=== PATIENT | male | born 1955 | race Caucasian/White ===

== ENCOUNTER 2025-01-01 14:48 | Inpatient (IN) | payer BC, SELFPAY ==
[2025-01-01] VITALS (45 sets, daily range): BP systolic 88–150; BP diastolic 56–128; BMI 32.1; BMI 32.6
--- NOTE | 2025-01-01 11:31 | ED.GENMED ---
History of Present Illness
General
Chief Complaint: Chest Pain
Source: patient
Exam Limitations: none
Time Seen by Provider: 01/01/25 11:17
Nursing documentation reviewed up to this point in time: agreed with
History of Present Illness
History of Present Illness:
69 yr old male with pmh of CAD, diabetes patient is a 69-year-old male who presents to the ER for evaluation of chest pain. Patient is a intermittent episodes of chest pain shortness of breath for the past several weeks he reports he gets very
short of breath with needing small exertion he is followed by Dr. Devine who wanted him to get a catheterization however if symptoms worsen he was instructed to come to the ER. He does report that Dr. Shepard was supposed to do a cardiac
catheterization. He was recently started on isosorbide by DR Devine.
Patient is asymptomatic currently. He is on aspirin and to take a dose today.
Phy Exam
General Physical Exam
General Presentation: no apparent distress
General age: appears stated age
General Skin: warm and dry
General Habitus: normal
General Mental: alert
General Hydration: appears well hydrated
Cardiovascular Exam
Cardiovascular Exam: regular rate/rhythm, no murmur and normal peripheral pulses
Pulmonary Exam
Pulmonary Exam: lungs clear and no respiratory distress
Neurological Exam
Neurological Exam: alert and oriented x3
Musculoskeletal Exam
Musculoskeletal Exam: full ROM
Skin Exam
Skin Exam: normal color and warm/dry
Psychiatric Exam
Psychiatric Exam: normal mood/affect
Scores
Heart Score for Chest Pain Patients
STEMI patient?: Not applicable
Course
Orders/Labs/Results
Orders:
Orders
01/01/25 11:06
Electrocardiogram (*1) Urgent
Reason for Study: Chest Pain
EKG- Treatment ONCE
01/01/25 11:36
Complete Blood Count/With Diff Urgent
Comprehensive Metabolic Panel Urgent
Troponin I Urgent
01/01/25 12:33
Nitroglycerin 100 mg/250 ml [Nitroglycerin Premix] 100 mg in 250 ml .ROUTE .STK-MED
Nitroglycerin Sublingual [Nitrostat (Sublingual)] 0.4 mg .ROUTE .STK-MED ONE
01/01/25 12:34
Nitroglycerin Ointment [Nitro-Bid] 1 inch .ROUTE .STK-MED ONE
01/01/25 12:48
0.9% Sodium Chloride 1000 ml [Nss] 1,000 ml IV BOLUS
Aspirin Chewable [Low Strength Aspirin] 243 mg PO NOW STA
Nitroglycerin Sublingual [Nitrostat (Sublingual)] 0.4 mg SL [id number] PRN
01/01/25 13:27
PTT Urgent
01/01/25 13:38
Heparin 4,000 units IV NOW STA
Heparin Protocol- PTT Orders As Directed
PTT per Heparin protocol: -Obtain CBC and baseline PTT - if not already collected.
-Obtain PTT 6 hours from start of infusion. Then, every 6 hours until 2 consecutive
PTT's are therapeutic. Then, PTT Daily.
-With each rate change, obtain PTT every 6 hours until 2 consecutive PTT's are
therapeutic. Then, PTT Daily.
Heparin Protocol- PTT Orders As Directed
PTT per Heparin protocol: -Obtain CBC and baseline PTT - if not already collected.
-Obtain PTT 6 hours from start of infusion. Then, every 6 hours until 2 consecutive
PTT's are therapeutic. Then, PTT Daily.
-With each rate change, obtain PTT every 6 hours until 2 consecutive PTT's are
therapeutic. Then, PTT Daily.
Notify MD As Directed
Notify physician if: PTT is greater than or equal to 200.
Notify MD As Directed
Notify physician if: PTT is greater than or equal to 200.
01/01/25 13:45
Heparin 18261 Units/250 ml 25,000 units in 250 ml IV PER PROTOCOL
Weight to be used for heparin protocol in kilograms (kg):: 101.6
Protocol:: Cardiac Tx/Acute Coronary
PTT Goal Range to be used:: PTT 73 to 111 seconds
Order type:: Initial
INITIAL Infusion Dose (UNITS/KG/hr) & then follow protocol:: 12 units/kg/hr
Infusion Dose in UNITS/hr & then follow protocol (UNITS/hr):: 1,000
INFUSION RATE in mL/hr & then follow protocol (mL/hr):: 10
PTT less than or equal to 64 seconds:: Increase rate by 200 units/hr (+ 2 mL/hr)
PTT 64.1 to 72.9 seconds:: Increase rate by 100 units/hr (+ 1 mL/hr)
PTT 73 to 111 seconds:: Target Range. No change in rate.
PTT 111.1 to 130.9 seconds:: Decrease rate by 100 units/hr (- 1 mL/hr)
PTT 131 to 199.9 seconds:: HOLD for 1 hr. Then decrease rate by 200 units/hr (- 2 mL/hr)
PTT greater than or equal to 200 seconds:: HOLD for 2 hrs & Notify Provider. Then decrease by 200 units/hr (-
2 mL/hr)
Lab follow-up:: Each change, PTT q6h until 2 consecutive are therapeutic. Then PTT
daily.
01/01/25 13:53
Admit/Transfer Patient As Directed
Co-Sign Provider:
Level of Care: Inpatient admission
Assign to:: IVU
Physician / Group: Lexie
Diagnosis: NSTEMI
Reason for Hospitalization: heparin drip, cardiac cath
Expected length of stay greater than two midnights?: Yes
ELOS- Estimated Length of Stay in days: 3
I certify the patient meets the requirements for IP care: Yes
01/01/25 13:54
PRN Pain Medication Management As Directed
May give lesser potent ordered pain med per pt: Yes
preference::
Protocol:: Medication orders for pain may be administered in a
manner that supports deferring to patient preference
when the pt is:
- Requesting an ordered lesser potent pain medication.
Least to most potent pain medications are defined
as: acetaminophen < NSAID < tramadol < opioids
(morphine, oxycodone, hydromorphone).
- Requesting a lesser dose of the same medication IF
ORDERED.
- Requesting a less intrusive route of administration
if both routes are prescribed by the provider (PO <
IV).
01/01/25 13:55
Code Status As Directed
Resuscitation Status: Full Code
01/01/25 16:23
Acetaminophen [Tylenol] 1,000 mg PO Q6HPRN PRN mild pain
Dextrose 50%-Water [Dextrose 50% Syringe] 12.5 grams IV [id number] PRN
Glucagon [GlucaGen] 1 mg IM PRN PRN
01/01/25 16:23
CARDIOLOGY CONSULT Routine
Consulting Provider: Ricardo Sequeira
Was physician already notified: Yes
Activity As Directed
Activity Level: Out of Bed-Early Mobility
With Assistance
Bedside Glucose Monitoring As Directed
Frequency: AC&HS
Additional Instructions:: Change to q6h if pt on TPN, tube feeding or not eating
I&O [Intake/ Output] As Directed
Frequency: q12h
Vital Signs As Directed
Frequency: Per unit guidelines
Weight As Directed
Frequency: Daily
01/01/25 16:30
Insulin Aspart Corrective Low [Novolog Flexpen-Low Resistance] See Protocol SC AC
01/01/25 17:00
EKG [Electrocardiogram (*1)] Routine
Reason for Study: Chest Pain
Troponin I Q6H
01/01/25 23:00
Troponin I Q6H
01/02/25 06:00
Echo 2D MMode Color/Doppler IN AM
Reason for Study: NSTEMI
Basic Metabolic Panel IN AM
Complete Blood Count/No Diff IN AM
Hgba1c [Glycohemoglobin (HgbA1c)] IN AM
Hgba1c [Glycohemoglobin (HgbA1c)] IN AM
Lipid Profile [Cardiovascular Evaluation] IN AM
Lipid Profile [Cardiovascular Evaluation] IN AM
Magnesium IN AM
01/02/25 08:00
Aspirin Low Dose EC [Aspir Low (Enteric Coated)] 81 mg PO DAILY
Dapagliflozin [Farxiga] 10 mg PO DAILY
ISOSORBIDE MONOnitrate ER [Imdur (Extended Release)] 30 mg PO DAILY
Losartan [Cozaar] 100 mg PO DAILY
Pantoprazole [Protonix] 40 mg PO DAILY
Rosuvastatin Calcium [Crestor] 40 mg PO DAILY
Tamsulosin [Flomax] 0.4 mg PO DAILY
01/03/25 06:00
Complete Blood Count/No Diff Q2D
Comment: notify provider: Platelet count < 130,000 or decrease by 50% from baseline
01/05/25 06:00
Complete Blood Count/No Diff Q2D
Comment: notify provider: Platelet count < 130,000 or decrease by 50% from baseline
01/07/25 06:00
Complete Blood Count/No Diff Q2D
Comment: notify provider: Platelet count < 130,000 or decrease by 50% from baseline
01/09/25 06:00
Complete Blood Count/No Diff Q2D
Comment: notify provider: Platelet count < 130,000 or decrease by 50% from baseline
01/11/25 06:00
Complete Blood Count/No Diff Q2D
Comment: notify provider: Platelet count < 130,000 or decrease by 50% from baseline
01/13/25 06:00
Complete Blood Count/No Diff Q2D
Comment: notify provider: Platelet count < 130,000 or decrease by 50% from baseline
01/15/25 06:00
Complete Blood Count/No Diff Q2D
Comment: notify provider: Platelet count < 130,000 or decrease by 50% from baseline
01/17/25 06:00
Complete Blood Count/No Diff Q2D
Comment: notify provider: Platelet count < 130,000 or decrease by 50% from baseline
Abnormal Lab Results
01/01/25
11:36
Abs Immat Gran (auto) 0.1 H 10^3/uL
(0-0.05)
Absolute Neuts (auto) 6.6 H 10^3/uL
(1.4-6.5)
Absolute Monos (auto) 0.8 H 10^3/uL
(0.1-0.6)
Immature Gran % 0.6 H %
(0-0.5)
Glucose 165 H mg/dl
(70-99)
Troponin I 0.124 H* ng/ml
01/01/25 11:36
01/01/25 11:36
Vital Signs
Initial and Last Documented VS:
Initial Vital Signs
Temp Pulse Resp BP Pulse Ox
98.0 F 111 20 100/72 97
01/01/25 11:12 01/01/25 11:12 01/01/25 11:12 01/01/25 11:12 01/01/25 11:12
Last Documented Vital Signs
Temp Pulse Resp BP Pulse Ox
98.5 F 81 14 136/89 97
01/01/25 16:25 01/01/25 16:34 01/01/25 16:25 01/01/25 16:00 01/01/25 16:25
MDM/Problems Addressed
Differential Diagnosis Includes:
Not limited to ACS, CAD CHF
MDM/Problems Addressed:
Pt is a 69-year-old male with past with a history of diabetes CAD followed by Dr. Gramajo outside cardiology group. He has been having exertional chest pain worse over the past several weeks but worse this past week. He does present with chest
pain 6 out of 10 no acute EKG findings are cardiac troponin is positive. He does complain of 6 out of 10 chest pain here he was given additional aspirin as he only took 1 baby aspirin this morning. nitroglycerin ordered.
case discussed with Dr. Sequeira cardiology. Cardiology evaluated at bedside . as per cardiology it is likely that pt will need a catheterization. Patient admitted to the hospital service.
*Pulse Oximetry
SaO2: 97
Oxygen Mode of Delivery: Room air
Patient hypoxic: no
*Critical Care Note
Total Time (30-74mins, 75-104mins- exclusive of procedures): Not Applicable
Patient Management
Discussion with other providers: Venipuncturist (Cardiology, DR Sequeira )
ED Attending Note
-
Portions of this chart may have been created with voice recognition software.� Occasional wrong word or��sound alike� substitutions may have occurred due to the inherent limitations of voice recognition software.
Discharge Plan
Departure
Patient Disposition: Admit
Date of Disposition: 01/01/25
Time of Disposition: 13:20
Admit to: Telemetry
Admit to doctor: hospitalist
Presentation/result/management discussed w/ accepting MD/DO: Hospitalist
Patient with high blood pressure during this ER visit?: No
Condition: Fair
Covid-19: Not Applicable
Discharge Problem:
Chest pain, Elevated troponin
Interventions
Interventions:
*Risk Screen - Suicide Last Done: 01/01/25 16:27
*General Assessment Last Done: 01/01/25 11:12
*Neglect/Abuse Screening Last Done: 01/01/25 12:42
*ED- Fall Risk Assessment Last Done: 01/01/25 16:27
*ED COVID-19 Vaccine History Last Done: 01/01/25 12:42
*Nursing Disposition Last Done: 01/01/25 16:27
ED- Cardiac Assessment Last Done: 01/01/25 11:42
Discharge Date and Time
Discharge Date/Time: 01/01/25 16:28
[2025-01-01 11:48] LABS: Hematocrit 41.2 % (39.0-52.0); Hemoglobin 14.1 g/dL (13.0-18.0); Mean Corp Hgb Conc. 34.2 g/dL (33.0-37.0); Mean Corpuscular Volume 85.5 fL (80.0-94.0); Nucleated Red Blood Cells % 0 % (-); Platelet Count 271 10^3/uL (130-400); Red Cell Dist. Width 12.6 % (11.5-14.5)
[2025-01-01 12:12] LABS: ALT (SGPT) 21 U/L (0-50); AST (SGOT) 22 U/L (17-59); Albumin 4.7 g/dl (3.5-5.0); Alkaline Phosphatase 51 U/L (38-126); Blood Urea Nitrogen 20 mg/dl (9-20); Calcium 9.6 mg/dl (8.4-10.2); Carbon Dioxide 23 mmol/L (22-30); Chloride 104 mmol/L (98-107); Glucose 165 mg/dl (70-99); Potassium 4.1 mmol/L (3.5-5.1); Sodium 136 mmol/L (135-145); Total Protein 6.7 g/dl (6.3-8.2); eGFR > 60.00
[2025-01-01 12:26] LABS: Troponin I 0.124 ng/ml
[2025-01-01] MEDS: NITROSTAT (SUBLINGUAL) 0.4 MG SL ×5 (12:52→20:10)
[2025-01-01] MEDS: NSS 1000 IV (12:56)
[2025-01-01] MEDS: LOW STRENGTH ASPIRIN 243 MG PO (12:58)
--- NOTE | 2025-01-01 13:27 | CON.CAR ---
Addendum entered and electronically signed by Ricardo Sequeira MD 01/01/25 14:51:
I saw and evaluated the patient, and I provided the substantive portion of the medical decision making.
I reviewed and agree with the note by LESLEY Roldan and it accurately reflects our care.
I personally performed the medical decision making of the this encounter and my assessment and plan is below:
Data:
EKG 01/01/2025 NSR 97 bpm normal.
Labs 01/01/2025: WBC 10, Hgb 14.1, PLT 271 PTT 27, glucose 165, sodium 136, creatinine 0.7, initial troponin 0.124
Cath 07/2008 sequential 20%, 30%, and 30% mid LAD lesions. Major diagonal 30 to 40% ostial stenosis. Luminal irregularities in the left circumflex, codominant right coronary artery.
Problems:
Progressive chest pain, initially exertional, subsequently at rest. Consistent with ACS. Abnormal troponin. High risk.
Mixed hyperlipidemia, on statin therapy
HTN: On medical therapy. Stable.
Type 2 diabetes mellitus, on therapy., Stable
Plan:
Aspirin, beta-blockers a bit low after nitroglycerin so we will hold on beta-mony, IV heparin, trend troponins, echocardiogram. Because he is not chest pain-free in the ER we will progress to coronary angiography today.
Original Note:
Consultation
Consultation Request
Date/Time Consultation Requested: 01/01/25 1248
Date/Time Consultation Performed: 01/01/25 1300
Requesting Provider: Hilary ZAVALA
Performing Provider: Jessica SUTTON for Dr. Sequeira
Reason for Consultation: NSTEMI
Medical History
-
Chief Complaint: chest discomfort and shortness of breath
History of Present Illness:
69 y/o male with HTN, HLD, DM, and previous history of non-obstructive CAD who is here for evaluation of 1.5 weeks of chest discomfort (midsternal pressure- feels like someone stepping on chest) and radiates to back. Worse with exertion, but also
noted with rest. Also noted GAR and LH with exertion. He saw his fruit distributor (Dr. Devine) yesterday and he recommended cath, but to come to ER if patient felt worse. He started imdur. Patient felt worse today so came in. CP started at 6 AM and
has been present ever since. It is better after nitro, but still a mild pressure. No distress. EKG stable. Troponin 0.124.
Past Medical History
Past Medical History: CAD, HTN, Hypercholesterolemia and NIDDM
Social History
Tobacco: Non-Smoker
Family History
Family History: Early CAD (dad PR age 51)
Allergies / Home Medications
Allergy/AdvReac Type Severity Reaction Status Date / Time
No Known Allergies Allergy Unverified 01/01/25 11:15
�Medication �Instructions �Recorded �Confirmed �Type
acetaminophen 500 mg tablet 1,000 mg PO Q6H PRN mild pain 01/01/25 01/01/25 History
(Tylenol Extra Strength)
aspirin 81 mg tablet 81 mg PO DAILY 01/01/25 01/01/25 History
empagliflozin 10 mg tablet 10 mg PO DAILY 01/01/25 01/01/25 History
(Jardiance)
isosorbide mononitrate 30 mg 30 mg PO DAILY 01/01/25 01/01/25 History
tablet,extended release 24 hr
losartan 100 mg tablet 100 mg PO DAILY 01/01/25 01/01/25 History
metformin 500 mg tablet 500 mg PO DAILY 01/01/25 01/01/25 History
omeprazole 40 mg capsule,delayed 40 mg PO DAILY 01/01/25 01/01/25 History
release
rosuvastatin 40 mg tablet 40 mg PO DAILY 01/01/25 01/01/25 History
tamsulosin 0.4 mg capsule 0.4 mg PO DAILY 01/01/25 01/01/25 History
Review of Systems
-
History Source: Patient
All other systems: Negative unless noted
Respiratory: Trouble Breathing
Cardiac: Chest Pain
Musculoskeletal: Other (back pain)
Neurological: Dizzy (LH with exertion)
Physical Exam
Vital Signs
Temp Pulse Resp BP Pulse Ox
98.0 F 111 20 107/83 97
01/01/25 11:12 01/01/25 11:12 01/01/25 11:12 01/01/25 13:23 01/01/25 11:32
Lab Results
01/01/25 11:36
01/01/25 11:36
Troponin I 0.124 ng/ml H* 01/01/25 11:36
Physical Exam
General: Well Developed, Well Nourished and No Apparent Distress
HEENT: Normocephalic and Anicteric
Respiratory: Clear and Non Labored Respirations
Cardiac: Regular Rhythm
Musculoskeletal: No Edema
Skin: Warm and Dry
Neuro: AO x 3
Psych: Calm
Impression / Plan
-
NSTEMI:
-CP improved, but not resolved- give another nitro now- discussed with nursing
-this diagnosis is threat to life
-needs cardiac cath- will arrange
-start heparin drip, which requires intensive monitoring
-full dose ASA received today
-trend trops and EKG, obtain echo
-lipids hgbA1C
HTN:
-continue ARB and monitor
HLD:
-continue statin
-check lipids
DM2:
-check A1C
-hold metformin
-management per primary team
Data Reviewed
-
EKG: Tracing Personally Visualized and interpreted (NSR)
Radiology: Report Reviewed by me (CXR: Normal PA and lateral views of the chest.)
Medical Tests (Nuc Med, Echo etc): Other (echo ordered)
Labs: Labs Reviewed by me
--- NOTE | 2025-01-01 13:27 | HPS.HSE ---
Addendum entered and electronically signed by Alcira Owen MD 01/01/25 14:30:
This is an addendum to H&P written by Elayne Finley on 01/01/2025. �Patient seen and examined independently with PA.
69-year-old male past medical history of nonobstructive CAD, hypertension, hyperlipidemia, diabetes, BPH, presenting with intermittent chest pain and shortness of breath for past several weeks mainly with exertion. �Worsening pain without
improvement nitro today.
Vital signs show mild tachycardia.
EKG shows normal sinus rhythm, ST depressions in V3-V6. �Troponin of 0.124.
Patient with NSTEMI. �Check A1c and lipid panel. �Trend troponins. �Aspirin, heparin drip, n.p.o. for catheterization today.
Original Note:
Family Physician
-
Family Physician: Jian Mantilla
Chief Complaint
-
Chest Pain
History of Present Illness
Patient is a 69 y/o male past medical history of non-obstructive coronary artery disease, diabetes mellitus, hypertension, hyperlipemia and BPH who presents with chest pain. Patient reports over the past few weeks he has been experiencing exertional
chest pain and shortness of breath. He reports symptoms are now occurring with only minimal exertion. Pain was worse this morning prompting him to come to the emergency department for evaluation. He did take a first nitro at home without much
change. While in the ED he has received two additional doses of nitro and is not reporting some improvement.
Medical History
Past Medical History
Past Medical History: Reports Other
Additional Past Medical History:
Coronary Artery Disease
Diabetes Mellitus, Type II
Essential Hypertension
Hyperlipidemia
BPH
GERD
Past Surgical History: Reports Other
Additional Past Surgical History:
Back Surgery
Bilateral Shoulder Surgery
Social History
Tobacco: Non-smoker
Alcohol: None
Personal:
Living: With Family
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
Family History
Family History: Other (Father: CAD with VT at 51)
Allergies / Home Medications
Allergies reflects when Allergies were last updated in [employer].
Home Medications with original date entered in [employer]
Allergy/Medication List:
Allergies
Allergy/AdvReac Type Severity Reaction Status Date / Time
No Known Allergies Allergy Unverified 01/01/25 11:15
Home Medications
acetaminophen 500 mg tablet (Tylenol Extra Strength) 1,000 mg PO Q6H PRN mild pain 01/01/25
aspirin 81 mg tablet 81 mg PO DAILY 01/01/25
empagliflozin 10 mg tablet (Jardiance) 10 mg PO DAILY 01/01/25
isosorbide mononitrate 30 mg tablet,extended release 24 hr 30 mg PO DAILY 01/01/25
losartan 100 mg tablet 100 mg PO DAILY 01/01/25
metformin 500 mg tablet 500 mg PO DAILY 01/01/25
omeprazole 40 mg capsule,delayed release 40 mg PO DAILY 01/01/25
rosuvastatin 40 mg tablet 40 mg PO DAILY 01/01/25
tamsulosin 0.4 mg capsule 0.4 mg PO DAILY 01/01/25
Review of Systems
-
A 12 point ROS was completed and negative except as noted: Yes
Constitutional: Denies Fever or Chills
Respiratory: Denies Cough or Trouble Breathing
Cardiac: Reports See HPI
Abdomen/GI: Denies Abdominal Pain, Nausea or Vomiting
Musculoskeletal: Denies Edema
Physical Exam
Vital Signs
Vital Signs
Temp Pulse Resp BP Pulse Ox
98.0 F 111 20 107/83 97
01/01/25 11:12 01/01/25 11:12 01/01/25 11:12 01/01/25 13:23 01/01/25 11:32
Physical Exam
General: Comfortable and Conversant
HEENT: Anicteric and Moist mucous membranes
Respiratory: Clear and Non Labored Respirations
Cardiac: S1/S2 and Regular Rhythm
GI: Soft and Non Tender
Rectal: Deferred by Provider
Musculoskeletal: No Clubbing, No Cyanosis and No Edema
Skin: Warm and Dry
Neuro: Awake, Alert, Oriented and Nonfocal/grossly intact
Psych: Calm
Laboratory Results
-
01/01/25 11:36
01/01/25 11:36
Laboratory Results
Total Bilirubin 0.6 mg/dl (0.2-1.3) 01/01/25 11:36
AST 22 U/L (17-59) 01/01/25 11:36
ALT 21 U/L (0-50) 01/01/25 11:36
Alkaline Phosphatase 51 U/L (38-126) 01/01/25 11:36
Troponin I 0.124 ng/ml H* 01/01/25 11:36
Data Reviewed
-
Medical Tests (Nuc Med, Echo, EKG etc): Report Reviewed by me
Lab Data: Labs Reviewed by me
Impression/Plan
-
Non-ST Elevation VT
-Consult Cardiology
-Plan for cardiac catheterization this afternoon
-Continue to trend troponin
-Continue heparin drip
-Continue aspirin
-Continue isosorbide mononitrate
-Check HgbA1c and Lipid Panel
Diabetes Mellitus, Type II
-Continue Jardiance
-Hold metformin post cardiac cath
-Monitor sugars and continue coverage insulin
Essential Hypertension
-Continue losartan
Hyperlipidemia
-continue rosuvastatin
BPH
-Continue tamsulosin
DVT proph: Heparin drip
Code Status: Full Code
[2025-01-01 13:54] LABS: APTT 27.3 Sec (23.4-35.0)
[2025-01-01] MEDS: HEPARIN 4000 UNITS IV (13:55)
[2025-01-01] MEDS: HEPARIN 25000 UNITS/250 ML IV (13:56)
--- NOTE | 2025-01-01 16:47 | PTCARENOTE ---
Rec'd report from [facility] in the ED; Rec'd pt AAOx3 w/no c/o CP or SOB at this time. Pt w/VSS w/HR in the 70's-80's & SR on telemetry monitoring. Pt w/IV heparin infusing through a patent line as ordered. Plan of care discussed briefly w/pt just before
nursery laborer RNs came to take pt to the nursery laborer. Plan of care ongoing.
--- NOTE | 2025-01-01 17:36 | ITS.CL.CATH ---
Lamp Replacer - Catheterization
Cardiac Catheterization
Procedure Report:
CARDIAC CATHETERIZATION REPORT
Date of Procedure: 01/01/2025
Referring: Ricardo Sequeira M.D.
INDICATION: Acute coronary syndrome.
PROCEDURE:
1. Left heart catheterization.
2. Coronary angiography.
3. Successful IFR of the mid LAD.
A total of 28 minutes of procedural/moderate sedation was utilized. An independent biomedical photographer was present to assist with and help manage the patient's level of consciousness and physiologic status.
ACCESS:
1. 6 Ukrainian right radial artery using a modified Seldinger technique delete delete the.
CATHETERS:
1. 5 Ukrainian JR4.
2. 5 Ukrainian JL 3.5.
3. 6 Ukrainian EBU 3.5 guiding catheter.
HEMODYNAMIC DATA
Weight (kg): 101.2
AO (s/d/x, mmHg): 108/77/89
LV (s/x mmHg): 118/12
AV gradient (x, mmHg): 10.57
LEFT VENTRICULOGRAPHY: Not performed.
CORONARY ANGIOGRAPHY
Dominance: Right.
Left Main: Normal size, trifurcating vessel. There is no coronary artery disease.
LAD: Normal size vessel giving rise to 2 diagonals. The first diagonal is a relatively small vessel. The second diagonal is a large vessel supplying a significant portion of the mid and distal anterolateral wall. There is a hazy, 40-50% lesion
in the mid LAD spanning the origin of D2. There is a 70% lesion in the mid to distal LAD. There is a 90% lesion in the ostium of the large second diagonal.
Ramus: Large size vessel supplying the majority of the lateral wall. There is no coronary artery disease.
Circumflex: Normal size, nondominant vessel giving rise to 1 medium sized obtuse marginal and a small arcade of posterolateral branches. There are luminal irregularities in the distal circumflex/LPL's.
RCA: Normal size, dominant vessel. There is a 90%, true ostial lesion in the RCA. There are several 40% lesions in the distal RCA as it becomes the RPDA.
INTERVENTION(S)
1. Successful IFR of the 70% mid/distal LAD lesion, demonstrating occlusive disease (IFR = 0.87).
Narrative:
The decision was made to perform physiologic testing. The diagnostic catheter was removed over a wire and exchanged for a(n) EBU 3.5 guiding catheter. The guiding catheter was advanced into the ascending aorta and seated in the left main coronary
artery. Additional heparin was given to obtain an ACT greater than 250 seconds. An iFR wire was zeroed outside of the body, then inserted into the guiding sheath. The wire was advanced and the transducer was normalized just outside of the guiding
catheter tip. The wire was advanced into the mid/distal LAD, beyond the 70% lesion. Three iFR measurements were taken. The lesion was determined to be occlusive (0.87).
Closure Device: Vascular band.
Radiation (mGy): 718
DAP (cm2.Gy): 33.9
Fluoroscopy time (minutes): 8.3
CONCLUSIONS
1. Right dominant circulation with a 90% true ostial RCA lesion followed by several 40% lesions in the distal RCA as it becomes the RPDA, hazy, 40-50% lesion in the mid LAD spanning the origin of D2, a 90% lesion in the ostium of the large second
diagonal and an occlusive 70% lesion in the mid/distal LAD (IFR = 0.87).
2. Normal filling pressures (LVEDP = 12 mmHg at 101.2 kg).
3. Probably mild aortic valve stenosis (mean aortic valve gradient 10.57 mmHg).
RECOMMENDATIONS:
1. Expectant management after cardiac catheterization via right radial approach.
2. Limited weight bearing on the right for one week.
3. Consultation with CT surgery regarding optimal revascularization strategy.
4. Resume heparin drip.
5. OMT/GDMT as hemodynamics will tolerate.
6. Aggressive secondary prevention with high-dose, high potency statin. Goal LDL <55.
7. Echocardiogram ordered and pending.
Copy to: Jeni Brody PA-C, Jasen Devine D.O., Jian Mantilla M.D.
Samir Shepard DO, FACC, FACP
[2025-01-01 17:37] LABS: ACT-LR - POC 368 Seconds (116-155)
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
[2025-01-01 18:10] LABS: Glucose - Point of Care 111 mg/dl (70-99)
[2025-01-01 18:21] LABS: Troponin I 0.115 ng/ml
[2025-01-01] MEDS: TYLENOL 1000 MG PO (20:25)
[2025-01-01] MEDS: NITROGLYCERIN PREMIX 250 IV (20:40)
--- NOTE | 2025-01-01 20:52 | W.PN.UPDATE ---
Update Note
Progress Note Update
-came in @ 8:10 pm to eval pt for 7/10 CP. BP 126/73, pOx 95% RA, nsr 73 bpm. No acute ECG changes. Pt was given 2 sl Nitros, started on 2L O2 and is currently pain free. BP ok 116/73 after getting Nitros. Started on iv Nitro. iv Heparin will be
re-started tonight after the cath. Tylenol for headache post Nitros. Pt is undergoing eval for CABG
-discussed with Dr. Bella
-will continue to monitor.
[2025-01-01] MEDS: MELATONIN 5 MG PO (21:01)
[2025-01-01 22:25] LABS: Glucose - Point of Care 117 mg/dl (70-99)
--- NOTE | 2025-01-01 23:22 | PTCARENOTE ---
Patient received at change of shift resting in the bed. Right radial TR band intact, pox 94%, radial pulse palpable. The patient at change of shift denied chest pain. Upon entering the room to complete site and pulse checks at approximately 1955 the
patient reported chest pain. Rated the chest pain as a 7 out of 10, described as pressure across the right and left side of his chest. Denies radiation. Denied N/V. The patient reported that the chest pain had started 45 minutes prior reporting it.
SL nitro x2 was given. An ECG was completed. CT surgery LARRY Dumas was notified and came to the bedside to evaluate the patient. 2L NC was applied. Oxygen saturation 96-97%. Sinus rhythm on telemetry. Nitroglycerin gtt was initiated as ordered.
The patient reported his pain resolved with SL Nitro x2 and initiation of the nitro gtt. PRN acetaminophen was given for a headache following nitro administration, see JUL. TR band off at 2100, gauze and tegaderm applied. Radial pulse palpable.
Heparin gtt resumed at 2230 per order. First type and screen drawn and sent. Plan on care discussed. Call johns within reach. Care ongoing.
[2025-01-01 23:32] LABS: Troponin I 0.093 ng/ml
[2025-01-02] VITALS (19 sets, daily range): BP systolic 101–135; BP diastolic 61–96; BMI 32.3
[2025-01-02] MEDS: TYLENOL 1000 MG PO ×3 (03:41→17:04)
[2025-01-02 04:08] LABS: Hematocrit 40.0 % (39.0-52.0); Hemoglobin 13.9 g/dL (13.0-18.0); Mean Corp Hgb Conc. 34.8 g/dL (33.0-37.0); Mean Corpuscular Volume 85.3 fL (80.0-94.0); Platelet Count 232 10^3/uL (130-400); Red Cell Dist. Width 12.5 % (11.5-14.5)
[2025-01-02 04:15] LABS: APTT 36.5 Sec (23.4-35.0)
[2025-01-02 04:57] LABS: Blood Urea Nitrogen 17 mg/dl (9-20); Calcium 9.4 mg/dl (8.4-10.2); Carbon Dioxide 25 mmol/L (22-30); Chloride 106 mmol/L (98-107); Estimated Creatinine Clearance > 125 ml/min; Glucose 119 mg/dl (70-99); HDL Cholesterol 49 mg/dl; LDL Cholesterol, Calculated 75 mg/dl; Magnesium 1.5 mg/dl (1.6-2.3); Potassium 4.1 mmol/L (3.5-5.1); Sodium 138 mmol/L (135-145); Very Low Density Lipoprotein 30 mg/dl (0-30); eGFR > 60.00
[2025-01-02 07:23] LABS: Glucose - Point of Care 122 mg/dl (70-99)
--- NOTE | 2025-01-02 07:31 | W.PN.CD ---
Today's Communication / Plan
-
Magnesium IV + PO.
F/U CTS consult.
Pain control with nitro gtt.
Add ezetimibe 10 mg daily.
Echocardiogram pending.
Impression / Plan
-
Impression/Plan: 69 y/o male with HTN, HLD, NIDDM and strong family history admitted with NSTEMI.
#NSTEMI:
-Acute, threat to life.
-Cardiac catheterization revealed 2V CAD (culprit ostial RCA, iFR+ mLAD and 90% ostial large D2).
-Consultation with CTS regarding revascularization options.
-Pain control with nitro gtt.
-Echocardiogram pending.
-Replace magnesium.
#HTN:
-Chronic, stable.
-BP control with nitro gtt for the time being.
#HLD:
-Chronic, stable.
-Total cholesterol = 154, LDL = 75, HDL = 49, Triglycerides = 153.
-Continue rosuvastatin 40 mg daily.
-Add ezetimibe 10 mg daily.
-Goal LDL < 55, triglycerides < 150.
#DM2:
-Chronic, stable.
-HbA1c pending.
-Hold metformin.
Subjective/Interval History:
Cath yesterday shows multivessel CAD.
CT surgery consulted.
Chest pain overnight controlled with nitro gtt.
Mg low at 1.5 this AM.
DATA:
Cardiac Catheterization, 01/01/2025:
CONCLUSIONS
1. Right dominant circulation with a 90% true ostial RCA lesion followed by several 40% lesions in the distal RCA as it becomes the RPDA, hazy, 40-50% lesion in the mid LAD spanning the origin of D2, a 90% lesion in the ostium of the large second
diagonal and an occlusive 70% lesion in the mid/distal LAD (IFR = 0.87).
2. Normal filling pressures (LVEDP = 12 mmHg at 101.2 kg).
3. Probably mild aortic valve stenosis (mean aortic valve gradient 10.57 mmHg).
Physical Exam
Vital Signs/Labs
Vital Signs
Temp Pulse Resp BP Pulse Ox
36.6 C 67 18 131/83 94
01/02/25 03:40 01/02/25 06:38 01/02/25 03:40 01/02/25 06:38 01/02/25 03:40
12/31/24 01/01/25 01/02/25
11:59 11:59 11:59
Actual Weight 101.6 kg 102.1 kg
01/02/25 03:52
01/02/25 03:52
APTT 36.5 Sec (23.4-35.0) H 01/02/25 03:52
Magnesium 1.5 mg/dl (1.6-2.3) L 01/02/25 03:52
Triglycerides 153 mg/dl (10-149) H 01/02/25 03:52
LDL Cholesterol, Calc 75 mg/dl 01/02/25 03:52
VLDL Cholesterol, Calc 30 mg/dl (0-30) 01/02/25 03:52
HDL Cholesterol 49 mg/dl 01/02/25 03:52
LAB Results
01/01/25 01/01/25 01/01/25
11:36 17:34 22:46
Troponin I 0.124 H* 0.115 H* 0.093 H*
Physical Exam
Constitutional: No acute distress and Comfortable
EENT: Anicteric and Moist mucous membranes
Cardiovascular: Rhythm & rate is regular, Pedal edema is absent, JVD pressure is normal, S1S2 is normal and Murmur/rub/gallop absent
Respiratory: Respiratory effort normal, Lungs clear to auscul., Wheeze Absent, Crackles Absent and Rhonchi Absent
GI: Soft, Distention absent, Flat, Non tender and Normal bowel sounds
Neuro/Psych: AO x 3
Other: Cath Site (Right radial access site is C/D/I.)
Data Reviewed
-
Date of Service: January 02, 2025
Medical Decision Making: Reviewed Test Results, Independent Historian Assessment, Test Interpretation and Review of Case with other Provider
EKG: Tracing Personally Visualized and interpreted and Report Reviewed by me
Echo: Ordered by me
X-Ray/CT/US/MRI/NUC/PET: Image Personally Visualized and interpreted and Report Reviewed by me
Medical Tests (PFT, Pathology etc): Image Personally Visualized and interpreted, Report Reviewed by me, Discussed with Patient and Discussed with Family
Labs: Labs Reviewed by me
[2025-01-02] MEDS: FLOMAX 0.4 MG PO (08:08)
[2025-01-02] MEDS: CRESTOR 40 MG PO (08:08)
[2025-01-02] MEDS: MAGNESIUM SULFATE 100 IV (08:08)
[2025-01-02] MEDS: IMDUR (EXTENDED RELEASE) 30 MG PO (08:08)
[2025-01-02] MEDS: PROTONIX 40 MG PO (08:09)
[2025-01-02] MEDS: MAGNESIUM OXIDE 400 MG PO ×2 (08:09→20:08)
[2025-01-02] MEDS: ASPIR LOW (ENTERIC COATED) 81 MG PO (08:09)
[2025-01-02 09:59] LABS: Glycohemoglobin (HgbA1c) 6.8 % (4.0-5.6)
--- NOTE | 2025-01-02 10:03 | CARDSERVLU ---
Echocardiogram with Lumason completed after protocol screening completed. Allergies verified.
Patent IV site: _Right arm accessory cephalic 20 G PC____
IV site flushed with 0.9% NaCl pre and post administration.
Diluted bolus method utilized to enhance visualization of ventricular palomino.
Total volume given: _2___ mL
Patient tolerated all procedures well without complications.
--- NOTE | 2025-01-02 10:12 | W.PN.UPDATE ---
Addendum entered and electronically signed by Jimenez Cohen MD 01/02/25 12:12:
CARDIAC SURGERY ATTENDING:
It was my pleasure to meet with Mr. Charlie Rasmussen. He is a very pleasant 69-year-old gentleman who presented with escalating anginal symptoms and ACS with NSTEMI. Cardiac catheterization was completed and demonstrated multivessel CAD affecting
his LAD/D2 and ostial RCA. I reviewed his cardiac catheterization images and discussed his case in multidisciplinary fashion with my interventional cardiology colleagues. Despite having nonproximal LAD disease, given the technical challenges of
PCI/stenting, I believe surgical revascularization is ideal strategy for this patient. I recommended DUSTY to LAD and bypasses to his major diagonal and RCA. His preoperative workup is being expediently completed, and I plan to proceed to the OR
tomorrow 01/03/2025.
I had a long conversation at bedside with Mr. Rasmussen. I reviewed his coronary pathology, discussed the proposed operative interventions, reviewed the periprocedural risks (including, but not limited to, , stroke, IA, arrhythmia, PNA, BETZAIDA/F,
bleeding, and infection), discussed expected in-hospital postprocedural course, and reviewed expected outpatient recovery. All questions were answered to the best of my abilities. The patient is agreeable to proceed.
Thank you for the opportunity participate in the care of this kind gentleman.
Jimenez Cohen MD
[phone]
Original Note:
Update Note
Progress Note Update
STS RISK SCORE
Procedure Type:�Isolated CABG
Perioperative Outcome Estimate %
Operative Mortality 0.591%
Morbidity & Mortality 3.46%
Stroke 0.623%
Renal Failure 0.422%
Reoperation 1.31%
Prolonged Ventilation 1.71%
Deep Sternal Wound Infection 0.162%
Long Hospital Stay (>14 days) 1.72%
Short Hospital Stay (<6 days)* 68.3%
Clinical Summary
Planned Surgery: Isolated CABG, Urgent, First cardiovascular surgery
Demographics: 69 year old, male, 103.1kg, 178cm, BMI: 32.5 kg/m�
Lab Values: Creatinine: 0.6 mg/dL, Hematocrit: 40%, WBC Count: 9.2 10�/�L, Platelet Count: 601518 cells/�L
PreOp Medications: Oral diabetes control
Substance Abuse: Never smoker
Risk Factors / Comorbidities: Diabetes Mellitus , Hypertension, Family Hx of CAD
Cardiac Status: NYHA Class II, Ejection Fraction = 55%
Coronary Artery Disease: 2 vessels diseased, Non-ST Elevation IA, IA: 1 to 7 Days
Valve Disease: Trivial/Trace AR, Trivial/Trace MR, Trivial/Trace TR
--- NOTE | 2025-01-02 11:00 | PTCARENOTE ---
Mag 1.5. made aware and orders placed. Mag gtt ordered and administered.
[2025-01-02] MEDS: ZETIA 10 MG PO (11:13)
[2025-01-02 12:08] LABS: Glucose - Point of Care 100 mg/dl (70-99)
[2025-01-02 12:09] LABS: INR 0.94; PT 13.1 Sec (11.4-14.6)
[2025-01-02 12:10] LABS: APTT 39.7 Sec (23.4-35.0)
--- NOTE | 2025-01-02 12:29 | W.PN.HOSP.TC ---
Today's Communication/Plan
-
ACS protocol. CTS surgery eval
Assessment / Plan
Assessment / Plan
Physical exam:
General: Well Developed, Well Nourished and No Apparent Distress
HEENT: Normocephalic, Atraumatic and Moist Mucous Membranes
Respiratory: Clear to Auscultation; Negative Wheezes, Rales or Rhonchi
Cardiac: Regular Rhythm and S1/S2
GI: Soft, Nontender and Nondistended
Musculoskeletal: No Clubbing, No Cyanosis and No Edema
Neuro: Awake, Alert and Oriented
Psych: Calm
Echo:
1. Left ventricular ejection fraction is normal with an ejection fraction of 59 % by Hickman's biplane method of discs.
2. It appears the basal inferior wall is akinetic and the basal inferolateral wall is hypokinetic.
3. Mild aortic valve stenosis.
4. No prior study available for comparison.
A/P:
Non-ST Elevation MD
-Consult Cardiology
-S/p cardiac cath yesterday revealed two-vessel CAD
- CT surgery consulted
-Continue heparin drip. Status post echocardiogram results as above
-Continue aspirin and statin and beta-mony
-Hold isosorbide mononitrate
-Check HgbA1c 6.8 and Lipid Panel LDL 75
- Cont Nitroglycerin drip
Hypomagnesemia
- Replete and trend
Diabetes Mellitus, Type II
-Hold Farxiga
-Hold metformin post cardiac cath
-Monitor sugars and continue coverage insulin
Essential Hypertension
- Hold losartan
- Continue metoprolol
Hyperlipidemia
-continue rosuvastatin
BPH
-Continue tamsulosin
DVT proph: Heparin drip
Code Status: Full Code
Total time spent on today's encounter was 50 minutes which included time spent in counseling the patient/family regarding diagnosis and treatment plan as listed above, goals of care, and symptom management. Case was discussed with nursing staff,
specialists, and care coordinators/case management. All labs and imaging personally reviewed by me. Remainder the time spent in detailed review of previous records, lab data, imaging, and other medical provider documentation.
Anticipated Discharge: > 48 hours
Subjective/Interval History
-
Date of Service: January 02, 2025
Patient denies chest pain or shortness of breath.
Objective Data
-
Labs:
Laboratory Results
01/02/25 01/02/25 01/02/25
03:52 11:34 18:00
WBC 9.2
Hgb 13.9
Hct 40.0
Plt Count 232
PT 13.1
INR 0.94
APTT 36.5 H 39.7 H Pending
Sodium 138
Potassium 4.1
Chloride 106
Carbon Dioxide 25
BUN 17
Creatinine 0.6 L
Glucose 119 H
Calcium 9.4
Vital Signs:
Vital Signs
Temp Pulse Resp BP Pulse Ox
99.5 F 76 18 127/96 96
01/02/25 11:35 01/02/25 11:35 01/02/25 11:35 01/02/25 11:35 01/02/25 11:35
I&O
01/01/25 01/02/25 01/03/25
06:59 06:59 06:59
Intake Total 90.8 / 90.8 300 / 300
Output Total 1860 / 1860 200 / 200
Balance -1769.2 / -1769.2 100 / 100
--- NOTE | 2025-01-02 12:52 | CM ---
Reviewed chart. Met with and Mrs. Rasmussen to review discharge plans. He states prior to admission he resides with his spouse and children in a one story home without any steps to enter. He states prior to admission he was independent with
ambulation and adls. He states he does not have any DME in the home. He states he has a prescription plan and uses [facility]. He states his family will be in and out to assist in his care in needed. Medical work-up in progress. The discharge
plan is to return home with his spouse and children with a home visit by the Transitional Care Nurse when medically stable.
We briefly reviewed the shower instructions. We also reviewed the restrictions including sternal precautions and driving restrictions. Gave him the Cardiothoracic Surgery Educational Booklet. We discussed a home visit by the Transitional Care
Nurse. He is agreeable to a home visit. The plan is for CABG on Monday01/03/25.
--- NOTE | 2025-01-02 14:39 | PTCARENOTE ---
Report given to Joselin BELL RN. Pt transferred to RM [id number].
--- NOTE | 2025-01-02 15:00 | PTCARENOTE ---
Patient received from IVU in anticipation of CVOR in am. NSR via cm, SaO2 @ 94% on RA. R wrist catheterization site stable, no ecchymosis or hematoma noted. Heparin and NTG infusing, infusion rates and titrations noted on work list interventions.
Patient updated to plan of care for the remainder of the day, in agreement. See work list for full assessment and interventions performed.
--- NOTE | 2025-01-02 16:03 | PTCARENOTE ---
VS obtained, assessment stable. Patient resting comfortably, ordering dinner.
[2025-01-02 16:43] LABS: Glucose - Point of Care 97 mg/dl (70-99)
[2025-01-02 17:54] LABS: Urine Character Clear (Clear)
[2025-01-02] MEDS: HEPARIN 25000 UNITS/250 ML IV (17:56)
[2025-01-02 18:15] LABS: APTT 47.7 Sec (23.4-35.0)
[2025-01-02 18:20] LABS: Urine Red Blood Cell 0-2 /HPF (0-2); Urine White Cell 0-2 /HPF (0-5)
--- NOTE | 2025-01-02 19:44 | PTCARENOTE ---
Assumed care of patient at 1900. Patient alert and oriented, Follows commands, oob IN CHAIR, VALERIA RENTERIAR denies pain at this time on Nitro @20, hEPARIN @1600, RA lungs clear, BS present, Void without issue. explain paln of care and prep of surgery,
assessment completed. See worklist for details.
[2025-01-02] MEDS: XANAX 0.5 MG PO (21:50)
[2025-01-02 21:54] LABS: Glucose - Point of Care 119 mg/dl (70-99)
--- NOTE | 2025-01-02 22:34 | PTCARENOTE ---
patient clipped and shaved, CHG bath and CHG wipe bath completed. Linens and gown changed. Patietn vital signs stable. remains on nitro and heparin gtts.
[2025-01-03] VITALS (17 sets, daily range): BP systolic 94–146; BP diastolic 68–91; PULSE 70; BMI 31.0
[2025-01-03 00:49] LABS: APTT 70.4 Sec (23.4-35.0)
[2025-01-03] MEDS: PROTONIX 40 MG PO (05:02)
[2025-01-03] MEDS: MAGNESIUM OXIDE 400 MG PO (05:02)
[2025-01-03] MEDS: LOPRESSOR 25 MG PO (05:02)
[2025-01-03 05:19] LABS: Hematocrit 40.6 % (39.0-52.0); Hemoglobin 13.9 g/dL (13.0-18.0); Mean Corp Hgb Conc. 34.2 g/dL (33.0-37.0); Mean Corpuscular Volume 85.3 fL (80.0-94.0); Platelet Count 241 10^3/uL (130-400); Red Cell Dist. Width 12.4 % (11.5-14.5)
--- NOTE | 2025-01-03 05:29 | PTCARENOTE ---
Patient had second CHG bath,linens changed , oral medication given with a sip of water, Vitals sign documented, LBP and RBP done, ANcef ready to send to CVOR with patient.
[2025-01-03 05:31] LABS: APTT 65.4 Sec (23.4-35.0)
[2025-01-03] MEDS: BACTROBAN 2% OINTMENT 1 APPLIC NASAL ×2 (05:41→19:57)
[2025-01-03 05:42] LABS: Blood Urea Nitrogen 14 mg/dl (9-20); Calcium 9.1 mg/dl (8.4-10.2); Carbon Dioxide 25 mmol/L (22-30); Chloride 104 mmol/L (98-107); Estimated Creatinine Clearance > 125 ml/min; Glucose 134 mg/dl (70-99); Magnesium 2.0 mg/dl (1.6-2.3); Potassium 4.2 mmol/L (3.5-5.1); Sodium 136 mmol/L (135-145); eGFR > 60.00
[2025-01-03 07:47] LABS: Urine Character Clear (Clear)
[2025-01-03 07:48] LABS: ACT+ - POC 120 Seconds (82-134)
[2025-01-03 09:39] LABS: ACT+ - POC 510 Seconds (82-134)
[2025-01-03 10:11] LABS: B.E. - POC -0.4 mmol/L; Glucose - POC 145 mg/dl (70-99); HCO3 - POC 25 mmol/L (21-28); Hematocrit - POC 33 % PCV (42-52); Hemodilution- POC No; Hemoglobin Calculated - POC 11.1; Ionized Calcium - POC 1.15 mmol/L (1.15-1.33); Lactate - POC 0.70 mmol/L (0.36-0.75); O2 Saturation %Calculated-POC 99.6 % (94-98); PCO2 - POC 40 mmHg (35-48); PO2 - POC 188 mmHg (83-108); Potassium - POC 3.8 mmol/L (3.5-5.1); Sodium - POC 140 mmol/L (136-145); Specimen Type - POC Arterial; pH - POC 7.39 (7.35-7.45)
[2025-01-03 10:21] LABS: ACT+ - POC 522 Seconds (82-134)
[2025-01-03 11:10] LABS: ACT+ - POC 420 Seconds (82-134)
[2025-01-03 11:24] LABS: B.E. - POC 4.5 mmol/L; Glucose - POC 119 mg/dl (70-99); HCO3 - POC 28 mmol/L (21-28); Hematocrit - POC 28 % PCV (42-52); Hemodilution- POC Yes; Hemoglobin Calculated - POC 9.6; Ionized Calcium - POC 0.95 mmol/L (1.15-1.33); Lactate - POC < 0.30 mmol/L (0.36-0.75); O2 Saturation %Calculated-POC 100.0 % (94-98); PCO2 - POC 35 mmHg (35-48); PO2 - POC 514 mmHg (83-108); Potassium - POC 4.8 mmol/L (3.5-5.1); Sodium - POC 140 mmol/L (136-145); Specimen Type - POC Arterial; pH - POC 7.50 (7.35-7.45)
[2025-01-03 11:41] LABS: ACT+ - POC 473 Seconds (82-134)
[2025-01-03 11:56] LABS: B.E. - POC 2.7 mmol/L; Glucose - POC 139 mg/dl (70-99); HCO3 - POC 27 mmol/L (21-28); Hematocrit - POC 26 % PCV (42-52); Hemodilution- POC Yes; Hemoglobin Calculated - POC 8.8; Ionized Calcium - POC 0.98 mmol/L (1.15-1.33); Lactate - POC < 0.30 mmol/L (0.36-0.75); O2 Saturation %Calculated-POC 99.9 % (94-98); PCO2 - POC 37 mmHg (35-48); PO2 - POC 314 mmHg (83-108); Potassium - POC 4.7 mmol/L (3.5-5.1); Sodium - POC 140 mmol/L (136-145); Specimen Type - POC Arterial; pH - POC 7.47 (7.35-7.45)
[2025-01-03 12:06] LABS: B.E. - POC 4.0 mmol/L; Glucose - POC 175 mg/dl (70-99); HCO3 - POC 28 mmol/L (21-28); Hematocrit - POC 24 % PCV (42-52); Hemodilution- POC Yes; Hemoglobin Calculated - POC 8.3; Ionized Calcium - POC 0.97 mmol/L (1.15-1.33); Lactate - POC 0.56 mmol/L (0.36-0.75); O2 Saturation %Calculated-POC 99.9 % (94-98); PCO2 - POC 37 mmHg (35-48); PO2 - POC 274 mmHg (83-108); Potassium - POC 4.9 mmol/L (3.5-5.1); Sodium - POC 142 mmol/L (136-145); Specimen Type - POC Arterial; pH - POC 7.48 (7.35-7.45)
[2025-01-03 12:15] LABS: B.E. - POC 0.3 mmol/L; Glucose - POC 181 mg/dl (70-99); HCO3 - POC 24 mmol/L (21-28); Hematocrit - POC 21 % PCV (42-52); Hemodilution- POC Yes; Hemoglobin Calculated - POC 7.0; Ionized Calcium - POC 0.91 mmol/L (1.15-1.33); Lactate - POC 0.91 mmol/L (0.36-0.75); O2 Saturation %Calculated-POC 99.9 % (94-98); PCO2 - POC 36 mmHg (35-48); PO2 - POC 278 mmHg (83-108); Potassium - POC 4.9 mmol/L (3.5-5.1); Sodium - POC 144 mmol/L (136-145); Specimen Type - POC Arterial; pH - POC 7.44 (7.35-7.45)
[2025-01-03 12:15] LABS: ACT+ - POC 486 Seconds (82-134)
[2025-01-03 12:53] LABS: B.E. - POC 0.3 mmol/L; Glucose - POC 175 mg/dl (70-99); HCO3 - POC 25 mmol/L (21-28); Hematocrit - POC 29 % PCV (42-52); Hemodilution- POC Yes; Hemoglobin Calculated - POC 9.8; Ionized Calcium - POC 0.96 mmol/L (1.15-1.33); Lactate - POC 0.72 mmol/L (0.36-0.75); O2 Saturation %Calculated-POC 99.9 % (94-98); PCO2 - POC 40 mmHg (35-48); PO2 - POC 305 mmHg (83-108); Potassium - POC 4.5 mmol/L (3.5-5.1); Sodium - POC 143 mmol/L (136-145); Specimen Type - POC Arterial; pH - POC 7.41 (7.35-7.45)
[2025-01-03 12:59] LABS: ACT+ - POC 129 Seconds (82-134)
[2025-01-03] MEDS: PROTONIX PO (13:26)
[2025-01-03] MEDS: ASPIR LOW (ENTERIC COATED) PO (13:26)
[2025-01-03] MEDS: FLOMAX PO (13:26)
[2025-01-03] MEDS: CRESTOR PO (13:26)
[2025-01-03] MEDS: MAGNESIUM OXIDE PO (13:26)
[2025-01-03] MEDS: ZETIA PO (13:26)
[2025-01-03 13:35] LABS: B.E. - POC 0.4 mmol/L; Glucose - POC 153 mg/dl (70-99); HCO3 - POC 25 mmol/L (21-28); Hematocrit - POC 27 % PCV (42-52); Hemodilution- POC Yes; Hemoglobin Calculated - POC 9.1; Ionized Calcium - POC 1.13 mmol/L (1.15-1.33); Lactate - POC 0.76 mmol/L (0.36-0.75); O2 Saturation %Calculated-POC 99.9 % (94-98); PCO2 - POC 39 mmHg (35-48); PO2 - POC 305 mmHg (83-108); POC Comment POST; Potassium - POC 4.0 mmol/L (3.5-5.1); Sodium - POC 143 mmol/L (136-145); Specimen Type - POC Arterial; pH - POC 7.41 (7.35-7.45)
--- NOTE | 2025-01-03 13:44 | W.CVOR.SURPR ---
CVOR Surgeon Immed Pre Op
-
I have examined this patient prior to performance of the scheduled procedure.
The patient's condition is unchanged from the time of the dictated/written History and
Physical and the patient is able to undergo the scheduled procedure.
--- NOTE | 2025-01-03 13:44 | W.IMMPOSTOP ---
Addendum entered and electronically signed by Jimenez Cohen MD 01/03/25 15:08:
[id number]
Original Note:
Surgical Immed Post Op Note
-
CARDIAC SURGERY OPERATIVE NOTE:
Preoperative Dx:
MVCAD, NSTEMI
Postoperative Dx:
Same
Procedures:
1) Median sternotomy
2) Takedown of DUSTY (narrow pedicle/skeletonized)
3) Endoscopic harvest/prep of L RA
4) Endoscopic harvest/prep of RLE GSV
5) Epiaortic U/S assessment
6) CABG x 3 (DUSTY to LAD, L RA to D2, GSV to distal RCA past crux)
7) ELAA w/ 40mm AtriClip
Surgeon:
Jimenez Cohen M.D.
Assistants:
Preston Oconnell P.A.-C.; endoscopic harvest/prep of L RA, microbiology lab assistant throughout
Jian Wesley P.A.-C.; endoscopic harvest/prep of RLE GSV
Beulah Fox P.A.-C.; [id number] sternotomy closure
Anesthesia:
Francisco J Mejia M.D. and Walter StonerNRuperto
Perfusion:
Britney LuciaCМарияPМария; XC: 118min, CPB: 154min
Findings:
DUSTY was a healthy conduit w/ very brisk blood flow; ELD 2.50mm
RA was a healthy conduit w/ normal wall thickness; ELD 3.50mm
GSV was a healthy conduit w/ normal wall thickness; ELD 3.75-4.00mm
Distal RCA at crux was visible on the epicardial surface, then obscured by epicardial adipose tissue. Identified just past crux w/ moderately dense closely situated calcifications. Spot amendable to anastomosis identified. Anterior wall OK at
this location w/ slightly thin palomino; opposite arteriotomy there were posterior calcifications that did not appear to impinge on the ELD. ELD 2.50mm. Good flow.
D2 was visible on the epicardial surface, scant scattered calcifications. ELD 3.00mm. Normal palomino
LAD was visible on the epicardial surface, as anticipated it tapered quite significantly as it progressed toward the apex. Slightly extended arteriotomy performed in partially oblique fashion across 70% [id number] LAD lesion. Proximal ELD
2.5mm, distal ELD 1.25mm. Anastomosis performed w/ 8-0 prolene. Very brisk filling of LAD w/ DUSTY flow post completion. Pedicle secured.
JOIE w/ windsock morphology, excluded at its base w/ 40mm AtriClip - confirmed w/ LEIDA
Proximal anastomoses performed under single clamp technique given degree of ascending aortic calcifications
Good flow in all grafts on intraoperative transit-time U/S flow probe assessment
Post LEIDA: LVEF 55%, basal inferior wall akinesis (unchanged from preop), mild MR, mild PI; JOIE confirmed excluded; aortic sclerosis w/o stenosis; mean gradient 6mmHg
Implants:
Epicardial V-wire x 1
CT x 4 (B/L pleural, inferior mediastinal, superior mediastinal)
Sternal wires x 6
Sternal 'X' plate @ sternal angle w/ 8 - 16mm screws
Sternal 'X' plate @ sternal body w/ 8 - 12mm screws
Complications:
None
Condition:
61 isoelectric sinus (0.3/0.1); 123/75. 100%
GTTS: levophed 3, insulin 2, cardizem 5, precedex 0.5, dobutamine 3
[2025-01-03 14:18] LABS: Glucose - Point of Care 137 mg/dl (70-99)
--- NOTE | 2025-01-03 14:24 | CON.INTV ---
Consultation
Consultation Request
Date/Time Consultation Requested: 01/03/25
Date/Time Consultation Performed: 01/03/25
Performing Provider: Rashaad
Reason for Consultation: CVICU
Medical History
-
History of Present Illness:
Patient is a 69-year-old male with prior history of nonobstructive CAD, hypertension, hyperlipidemia, diabetes presenting to ER on 01/01/2025 with intermittent chest pain and shortness of breath for several weeks. Was noted to have ST depressions
on EKG with troponin of 0.124, ruled in for NSTEMI. Underwent cardiac catheterization demonstrating 70% LAD lesion, 90% ostial, 90% RCA with recommendation for CT surgery evaluation. Underwent CABG x 3 on 01/03/2025 and admitted to CVICU for
postoperative management.
Past Medical History
Past Medical History: Other (see list below)
Social History
Tobacco: Non-smoker
Alcohol: None
Drug: None
Family History
Family History: Reviewed & Not Pertinent
Allergies / Home Medications
Allergies
Allergy/AdvReac Type Severity Reaction Status Date / Time
No Known Allergies Allergy Unverified 01/01/25 11:15
Home Medications
�Medication �Instructions �Recorded �Confirmed �Last Taken �Type
acetaminophen 500 mg tablet 1,000 mg PO Q6H PRN mild pain 01/01/25 01/01/25 Unknown History
(Tylenol Extra Strength)
aspirin 81 mg tablet 81 mg PO DAILY Blood Clot 01/01/25 01/01/25 01/01/25 History
Prevention/Tx
empagliflozin 10 mg tablet 10 mg PO DAILY Diabetes 01/01/25 01/01/25 01/01/25 History
(Jardiance)
isosorbide mononitrate 30 mg 30 mg PO DAILY Blood Pressure 01/01/25 01/01/25 01/01/25 History
tablet,extended release 24 hr
losartan 100 mg tablet 100 mg PO DAILY Blood Pressure 01/01/25 01/01/25 01/01/25 History
metformin 500 mg tablet 500 mg PO DAILY Diabetes 01/01/25 01/01/25 01/01/25 History
omeprazole 40 mg capsule,delayed 40 mg PO DAILY Gastrointestinal 01/01/25 01/01/25 01/01/25 History
release Issue
rosuvastatin 40 mg tablet 40 mg PO DAILY High Cholesterol 01/01/25 01/01/25 01/01/25 History
tamsulosin 0.4 mg capsule 0.4 mg PO DAILY Urinary Issue 01/01/25 01/01/25 01/01/25 History
Review of Systems
-
Unable to Obtain full review of systems at this time due to: Patient Intubation
Vitals / Labs / Diagnostic Testing
Vital Signs
Temp Pulse Resp BP Pulse Ox
98.6 F 59 18 145/83 97
01/03/25 05:10 01/03/25 06:30 01/03/25 05:10 01/03/25 05:10 01/03/25 05:10
Laboratory Results
01/02/25 01/02/25 01/03/25
17:33 17:55 00:08
APTT Cancelled 47.7 H 70.4 H
01/03/25
04:55
APTT 65.4 H
Diagnostic Testing:
Physical Exam
-
HEENT: Normocephalic, Anicteric and Moist Mucous Membranes
Cardiovascular: S1/S2 and Regular Rhythm
Respiratory: Clear, Non-Labored Respirations and Other (chest tube, ETT)
GI: Soft, Non Distended and Non Tender
Neurology: Other (sedated/intubated)
Skin: Warm, Dry and Good Color
General: Comfortable and Other (NAD)
Assessment
-
Patient is a 69-year-old male with prior history of nonobstructive CAD, hypertension, hyperlipidemia, diabetes presenting to ER on 01/01/2025 with intermittent chest pain and shortness of breath for several weeks. Was noted to have ST depressions
on EKG with troponin of 0.124, ruled in for NSTEMI. Underwent cardiac catheterization demonstrating 70% LAD lesion, 90% ostial, 90% RCA with recommendation for CT surgery evaluation. Underwent CABG x 3 on 01/03/2025 and admitted to CVICU for
postoperative management.
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
Perioperative mechanical ventilation
Postop anemia
Ruled in for NSTEMI status post cardiac cath 01/01/2025
Chest pain, elevated troponins, EKG changes
Hyperglycemia
Conditions present prior to admission
Coronary Artery Disease
Diabetes Mellitus, Type II
Essential Hypertension
Hyperlipidemia
BPH
GERD
Obesity, BMI 31
Back surgery
Bilateral shoulder surgery
Plan
S/p CABG x 3 POD #0
Titrate off pressors per protocol
ECHO reviewed with normal function
PA catheter readings reviewed
Management of chest tubes per primary service
Intubated/sedated, initiate SAT when able
Pain control
RASS goal of 0 to -1
Intubated for procedure, SBT trial when patient able to spontaneously breath
Current vent settings: SIMV 600/12/40/5
ABG(s) reviewed/adequate
CXR with no obvious opacities/infiltrates, low lung volumes, ETT in good position, lines/tubes in place
Extubate per protocol
Maintain supplement oxygen as needed
No prior history of pulmonary disease
No Prior PFTs for review
Can add nebulizers if needed
Aspiration precautions
Encouraged incentive spirometry, OOB/ambulation/early mobility
Advance diet as tolerated following extubation
GI prophylaxis if indicated for mechanical ventilation >48 hours
Monitor critical I/O's
Chapin/chest tube output
Hb/platelets postoperatively stable
Trend CBC for now
Can transfuse if indicated for Hb <7, plt <50 in surgical patients
DVT prophylaxis including SCDs
Insulin protocol initiated and ongoing
Transition to SQ/off as indicated per team
We will follow
Diagnostic Data
Chest X-Ray: 01/03/25- Endotracheal tube in place distal tip approximately 3.5 cm above the priti. Right and left chest tubes are present. No definite pneumothorax identified on this supine examination. There is a right internal jugular central
venous catheter placed with distal tip in the proximal third of the superior vena cava. Median sternotomy wires are present. Evidence of left atrial appendage closure device. Mild cardiac enlargement. Slight widening of the mediastinum, though
likely accentuated by recent surgery, as well has supine AP portable technique.
01/02/25- No acute disease of the chest
CT Scan: CHEST 01/02/25- No acute disease of the chest. Gallstones. Moderate atherosclerotic vascular disease.
Echo: 01/02/25- 1. Left ventricular ejection fraction is normal with an ejection fraction of 59 % by Hickman's biplane method of discs.
2. It appears the basal inferior wall is akinetic and the basal inferolateral wall is hypokinetic.
3. Mild aortic valve stenosis.
4. No prior study available for comparison.
PFT's:
Reports and relevant images were personally reviewed.
Critical Care time 50 mins -- The patient is admitted for acute critical illness for the treatment of vital organ failure and/or prevention of further life-threatening conditions. Total care includes time spent in review of history, physical exam,
medications, hemodynamic/ventilator parameters, laboratory data, imaging and discussion with house staff, pharmacy, respiratory therapy, steam roller operator, and nursing.
[2025-01-03 14:35] LABS: Hematocrit 28.4 % (39.0-52.0); Hemoglobin 10.2 g/dL (13.0-18.0); Platelet Count 153 10^3/uL (130-400)
[2025-01-03 14:40] LABS: B.E. -1.8 mmol/L; HCO3 23.1 mmol/L (21-28); O2 Saturation % 100.0 % (94-98); PCO2 39 mmHg (35-48); PO2 169 mmHg (83-108); Potassium 4.1 mMOL/L (3.5-5.1); Sodium 135 mMOL/L (136-145)
[2025-01-03] MEDS: ANCEF 10 IV ×2 (14:40)
[2025-01-03] MEDS: NSS 500 IV (14:40)
[2025-01-03] MEDS: TYLENOL PO ×2 (14:40→21:07)
[2025-01-03] MEDS: NEURONTIN PO (14:40)
[2025-01-03] MEDS: NOVOLOG FLEXPEN SC ×2 (14:40→14:44)
[2025-01-03 14:41] LABS: INR 1.25; PT 16.0 Sec (11.4-14.6)
[2025-01-03] MEDS: CARDIZEM 125 IV (14:41)
[2025-01-03] MEDS: PACERONE PO (14:41)
[2025-01-03 14:44] LABS: APTT 24.8 Sec (23.4-35.0)
[2025-01-03 14:45] LABS: O2 Therapy vent
[2025-01-03 14:50] LABS: Blood Urea Nitrogen 13 mg/dl (9-20); Estimated Creatinine Clearance > 125 ml/min; Glucose 148 mg/dl (70-99); Magnesium 2.9 mg/dl (1.6-2.3)
[2025-01-03] MEDS: CALCIUM GLUCONATE 100 IV (14:51)
--- NOTE | 2025-01-03 15:00 | PTCARENOTE ---
pt received from [facility]@~1415, sedated on Precedex gtt, RASS -5. core temp 98.2F. SR on the monitor, HR 60s. V wire in place, not connected to box. Dobutamine gtt running as ordered. SBP 80-110s, goal MAP >65, Levophed gtt titrated as ordered.
CVP~12-17. pt mechanically ventilated, ETT #8.0, 23cm@lip. SIMV 12, TV 600, PEEP 5, FIO2 40%. POX 100%. lungs clear anteriorly. CTx4, no air leak or crepitus noted. pt abdomen s/n, hypoactive BS. Chapin in place, clear yellow urine. sternal Aquacel
in place. chest tube dressing c/d/i. R groin puncture POOL CLEANER. RLE DREW bandage in place. LUE DREW bandage in place, limb restriction bracelet in place. Cardizem gtt running as ordered. RIJ cordis/slick in place. R radial A-line flushed, zeroed, and
calibrated. PIV. insulin gtt running as ordered. labs drawn, EKG performed, CXR completed. see worklist for VS, I&O, and assessment.
[2025-01-03 15:10] LABS: Glucose - Point of Care 158 mg/dl (70-99)
--- NOTE | 2025-01-03 15:19 | CM ---
pt in OR today, cm following
[2025-01-03] MEDS: DILAUDID 0.5 MG IV ×2 (15:44→21:06)
--- NOTE | 2025-01-03 15:55 | W.PN.CD ---
Addendum entered and electronically signed by Asad Lora MD 01/03/25 17:52:
I saw and examined the patient.
The CINDER WORKER's note was reviewed and I agree with the note.
Comment: DOing well post op. He is waking up about to start a breathing trial.
Continue POD #0 typical care.
Original Note:
Today's Communication / Plan
-
Close post-op monitoring and care with weaning of drips and vent as tolerated per CT surgery/CVICU protocol
Impression / Plan
-
Impression/Plan: 69 y/o male with HTN, HLD, NIDDM and strong family history admitted with NSTEMI. Seen to have 2V CAD and now s/p CABG.
NSTEMI/CAD:
-Cardiac catheterization revealed 2V CAD (culprit ostial RCA, iFR+ mLAD and 90% ostial large D2).
-now s/p CABG x 3 (DUSTY to LAD, L RA to D2, GSV to distal RCA past crux) and ELAA w/ 40mm AtriClip, Dr. Cohen 01/03/25
-remains intubated/ventilated and on Precedex post-op
-CT's and Chapin in place
-on dobutamine and norepinephrine post-op, both of which require intensive monitoring. Also on CCB due to radial graft.
-post-op EKG and telemetry SR
-TTE: Left ventricular ejection fraction is normal with an ejection fraction of 59 % by Hickman's biplane method of discs. It appears the basal inferior wall is akinetic and the basal inferolateral wall is hypokinetic. Mild aortic valve stenosis.
-intra-op LEIDA: LVEF is approximately 55% with basal inferior/posterior akinesis. The basal inferior wall is also thinned (0.8cm).
HTN:
-monitor post-op
HLD:
-Total cholesterol = 154, LDL = 75, HDL = 49, Triglycerides = 153.
-Continue rosuvastatin 40 mg daily.
-Add ezetimibe 10 mg daily.
-Goal LDL < 55, triglycerides < 150.
DM2:
-on insulin drip post-op per protocol
DATA:
Cardiac Catheterization, 01/01/2025:
CONCLUSIONS
1. Right dominant circulation with a 90% true ostial RCA lesion followed by several 40% lesions in the distal RCA as it becomes the RPDA, hazy, 40-50% lesion in the mid LAD spanning the origin of D2, a 90% lesion in the ostium of the large second
diagonal and an occlusive 70% lesion in the mid/distal LAD (IFR = 0.87).
2. Normal filling pressures (LVEDP = 12 mmHg at 101.2 kg).
3. Probably mild aortic valve stenosis (mean aortic valve gradient 10.57 mmHg).
Physical Exam
Vital Signs/Labs
Vital Signs
Temp Pulse Resp BP Pulse Ox
98.3 F 59 12 109/76 100
01/03/25 15:00 01/03/25 15:50 01/03/25 15:50 01/03/25 15:47 01/03/25 15:50
01/02/25 01/03/25 01/04/25
06:59 06:59 06:59
Actual Weight 102.1 kg 100.9 kg
01/03/25 14:19
PT 16.0 Sec (11.4-14.6) H 01/03/25 14:19
INR 1.25 01/03/25 14:19
APTT 24.8 Sec (23.4-35.0) 01/03/25 14:19
Magnesium 2.9 mg/dl (1.6-2.3) H 01/03/25 14:19
Triglycerides 153 mg/dl (10-149) H 01/02/25 03:52
LDL Cholesterol, Calc 75 mg/dl 01/02/25 03:52
VLDL Cholesterol, Calc 30 mg/dl (0-30) 01/02/25 03:52
HDL Cholesterol 49 mg/dl 01/02/25 03:52
LAB Results
01/01/25 01/01/25 01/01/25
11:36 17:34 22:46
Troponin I 0.124 H* 0.115 H* 0.093 H*
Physical Exam
Constitutional: No acute distress
Cardiovascular: Rhythm & rate is regular and Rub present
Respiratory: Lungs clear to auscul. and Other (intubated/ventilated)
Neuro/Psych: Other (sedated)
Other: Skin (midsternal incision dressing CDI)
Data Reviewed
-
Date of Service: January 03, 2025
EKG: Tracing Personally Visualized and interpreted (NSR)
Echo: Report Reviewed by me (as noted)
Labs: Labs Reviewed by me
[2025-01-03 16:04] LABS: Glucose - Point of Care 150 mg/dl (70-99)
--- NOTE | 2025-01-03 16:35 | PTCARENOTE ---
PA aware of MVO2 result. Calcium repleted per orders. pt woke up thrashing, trying to grab ETTDEXTER. Dilaudid 0.5mg IVP given for CPOT 8.
[2025-01-03] MEDS: ZOFRAN 4 MG IV (16:45)
[2025-01-03 17:03] LABS: Glucose - Point of Care 130 mg/dl (70-99)
[2025-01-03 18:05] LABS: Glucose - Point of Care 120 mg/dl (70-99)
[2025-01-03] MEDS: OFIRMEV 100 IV (18:07)
[2025-01-03 18:20] LABS: B.E. - POC -1.2 mmol/L; Blood Urea Nitrogen - POC 14 mg/dl (3-120); Chloride - POC 107 mmol/L (96-111); Creatinine - POC 0.77 mg/dl (0.3-1.0); Glucose - POC 142 mg/dl (70-99); HCO3 - POC 24 mmol/L (21-28); Hematocrit - POC 30 % PCV (42-52); Hemodilution- POC Yes; Hemoglobin Calculated - POC 10.3; Ionized Calcium - POC 1.17 mmol/L (1.15-1.33); Lactate - POC 1.14 mmol/L (0.36-0.75); O2 Saturation %Calculated-POC 98.8 % (94-98); PCO2 - POC 40 mmHg (35-48); PO2 - POC 126 mmHg (83-108); Potassium - POC 4.3 mmol/L (3.5-5.1); Sodium - POC 142 mmol/L (136-145); Specimen Type - POC Arterial; pH - POC 7.38 (7.35-7.45)
--- NOTE | 2025-01-03 18:20 | RESPNOTE ---
Patient extubated with incident following CPAP trial and ABG. Patient placed on a 6L nasal cannula and Incentive Spirometry instruction completed.
--- NOTE | 2025-01-03 18:23 | PTCARENOTE ---
pt placed on CPAP trial @1745, tolerating well. follows commands, DEXTER. Ofirmev for pain. H&H sent, EPOC ABG done at bedside by LUCAS Castorena. pt extubated @1820 to 6LNC, drowsy, oriented x3. IS 500ml.
[2025-01-03 18:28] LABS: Hematocrit 29.7 % (39.0-52.0); Hemoglobin 10.5 g/dL (13.0-18.0); Platelet Count 201 10^3/uL (130-400)
[2025-01-03 19:09] LABS: Glucose - Point of Care 135 mg/dl (70-99)
[2025-01-03] MEDS: LOW STRENGTH ASPIRIN 81 MG PO (19:56)
[2025-01-03] MEDS: SENOKOT-S 1 TABLET PO (19:59)
[2025-01-03] MEDS: ANCEF 5 IV (19:59)
--- NOTE | 2025-01-03 20:00 | PTCARENOTE ---
Assumed care of the patient at 1900. Patient seen in bed, AOx3, drowsy. SR on CM, rates 70's, no edema, pulses palpable throughout, rub heard on auscultation, RRR. Lungs clear on 6LNC, IS encouraged, achieved 500; no cough at this time, depth of
breathing limited due to pain. See MAR for intervention. Abdomen SNT, no nausea, tolerating PO medications and ice chips. Chapin catheter in place draining clear, yellow urine. RAC PIV, R radial anibal, RIJ Cordis/Slic, all applicable lines leveled,
calibrated, and zeroed. On insulin, levo, Cardizem, and dobutamine. Per CVPA, patient switched to Cardene. Patient's with provided with update via phone. Patient sleeping between care. See worklist for titration details and additional nursing
interventions.
--- NOTE | 2025-01-03 20:00 | PTCARENOTE ---
Assumed care of the patient at 1900. Patient seen in bed, AOx3, drowsy. SR on CM, rates 70's, no edema, pulses palpable throughout, rub heard on auscultation, RRR. Lungs clear on 6LNC, IS encouraged, achieved 500; no cough at this time, depth of
breathing limited due to pain, see MAR for intervention; CTx4 in place to -20 cm wall suction, no crepitus or air leak noted, tidaling in R/L pleural chamber. Abdomen SNT, no nausea, tolerating PO medications and ice chips. Chapin catheter in place
draining clear, yellow urine. RAC PIV, R radial anibal, RIJ Cordis/Slic, all applicable lines leveled, calibrated, and zeroed. On insulin, levo, Cardizem, and dobutamine. Per CVPA, patient switched to Cardene. Patient's with provided with update via
phone. Patient sleeping between care. See worklist for titration details and additional nursing interventions.
[2025-01-03] MEDS: CARDENE 200 IV (20:05)
[2025-01-03] MEDS: CALCIUM GLUCONATE 130 MG IV (20:56)
[2025-01-03 21:02] LABS: Glucose - Point of Care 104 mg/dl (70-99)
[2025-01-03] MEDS: NEURONTIN 100 MG PO (21:07)
[2025-01-03 23:11] LABS: Glucose - Point of Care 115 mg/dl (70-99)
[2025-01-03] MEDS: FLOMAX 0.4 MG PO (23:12)
[2025-01-03] MEDS: ROXICODONE 5 MG PO (23:22)
[2025-01-04] VITALS (28 sets, daily range): BP systolic 78–122; BP diastolic 57–85; PULSE 96; O2SAT 96–100; BMI 31.2
--- NOTE | 2025-01-04 00:30 | PTCARENOTE ---
Pain management via multiple modalities, see MAR. Patient sleeping between care. Cardene and Levo off per CVPA Ezekiel, BP and HR stable. Pain control ongoing. No other acute changes.
[2025-01-04 01:06] LABS: Glucose - Point of Care 109 mg/dl (70-99)
[2025-01-04] MEDS: FLEXERIL 5 MG PO ×2 (01:10→08:53)
[2025-01-04 03:00] LABS: Glucose - Point of Care 117 mg/dl (70-99)
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
--- NOTE | 2025-01-04 04:00 | PTCARENOTE ---
Additional pain management. No acute issues, patient sleeping between care. VSS off of Levo and Cardene.
[2025-01-04] MEDS: ANCEF 5 IV ×2 (04:11→11:39)
[2025-01-04] MEDS: DILAUDID 0.5 MG IV (04:11)
[2025-01-04 04:28] LABS: Hematocrit 30.0 % (39.0-52.0); Hemoglobin 10.3 g/dL (13.0-18.0); Mean Corp Hgb Conc. 34.3 g/dL (33.0-37.0); Mean Corpuscular Volume 87.0 fL (80.0-94.0); Platelet Count 178 10^3/uL (130-400); Red Cell Dist. Width 12.7 % (11.5-14.5)
[2025-01-04 04:51] LABS: Blood Urea Nitrogen 14 mg/dl (9-20); Calcium 8.4 mg/dl (8.4-10.2); Carbon Dioxide 27 mmol/L (22-30); Chloride 108 mmol/L (98-107); Estimated Creatinine Clearance > 125 ml/min; Glucose 101 mg/dl (70-99); Magnesium 2.4 mg/dl (1.6-2.3); Potassium 4.7 mmol/L (3.5-5.1); Sodium 137 mmol/L (135-145); eGFR > 60.00
[2025-01-04 05:07] LABS: Glucose - Point of Care 93 mg/dl (70-99)
[2025-01-04] MEDS: ROXICODONE 5 MG PO ×2 (05:12→11:39)
[2025-01-04] MEDS: TYLENOL 1000 MG PO ×3 (05:17→22:27)
--- NOTE | 2025-01-04 06:44 | PTCARENOTE ---
Attempt to get patient OOB, orthostatic. Placed back into bed. No significant dumping into CT, BP improved after lying in bed.
--- NOTE | 2025-01-04 07:00 | W.PN.INTV ---
Today's Communication / Plan
Recommendations
Doing well post extubation, pain control per team
Off pressors, titrating off insulin gtt
OOB, IS, PT per team
Chest tube management
Can likely transfer to tele once off gtts
Assessment
-
Patient is a 69-year-old male with prior history of nonobstructive CAD, hypertension, hyperlipidemia, diabetes presenting to ER on 01/01/2025 with intermittent chest pain and shortness of breath for several weeks. Was noted to have ST depressions
on EKG with troponin of 0.124, ruled in for NSTEMI. Underwent cardiac catheterization demonstrating 70% LAD lesion, 90% ostial, 90% RCA with recommendation for CT surgery evaluation. Underwent CABG x 3 on 01/03/2025 and admitted to CVICU for
postoperative management.
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
Perioperative mechanical ventilation
Postop anemia
Ruled in for NSTEMI status post cardiac cath 01/01/2025
Chest pain, elevated troponins, EKG changes
Hyperglycemia
Conditions present prior to admission
Coronary Artery Disease
Diabetes Mellitus, Type II
Essential Hypertension
Hyperlipidemia
BPH
GERD
Obesity, BMI 31
Back surgery
Bilateral shoulder surgery
Plan
S/p CABG x 3 POD #1
Titrated off pressors per protocol
ECHO reviewed with normal function
Management of chest tubes per primary service
Extubated and doing well
Pain control
RASS goal of 0 to -1
ABG(s) reviewed/adequate
CXR with stable postop changes
Maintain supplement oxygen as needed
No prior history of pulmonary disease
No Prior PFTs for review
Can add nebulizers if needed
Aspiration precautions
Encouraged incentive spirometry, OOB/ambulation/early mobility
Advance diet as tolerated following extubation
GI prophylaxis if indicated for mechanical ventilation >48 hours
Monitor critical I/O's
Tavares/chest tube output
Hb/platelets postoperatively stable
Trend CBC for now
Can transfuse if indicated for Hb <7, plt <50 in surgical patients
DVT prophylaxis including SCDs
Insulin protocol initiated and ongoing
Transition to SQ/off as indicated per team
Diagnostic Data
Chest X-Ray: 01/03/25- Endotracheal tube in place distal tip approximately 3.5 cm above the priti. Right and left chest tubes are present. No definite pneumothorax identified on this supine examination. There is a right internal jugular central
venous catheter placed with distal tip in the proximal third of the superior vena cava. Median sternotomy wires are present. Evidence of left atrial appendage closure device. Mild cardiac enlargement. Slight widening of the mediastinum, though
likely accentuated by recent surgery, as well has supine AP portable technique.
01/02/25- No acute disease of the chest
CT Scan: CHEST 01/02/25- No acute disease of the chest. Gallstones. Moderate atherosclerotic vascular disease.
Echo: 01/02/25- 1. Left ventricular ejection fraction is normal with an ejection fraction of 59 % by Hickman's biplane method of discs.
2. It appears the basal inferior wall is akinetic and the basal inferolateral wall is hypokinetic.
3. Mild aortic valve stenosis.
4. No prior study available for comparison.
PFT's:
Reports and relevant images were personally reviewed.
Critical Care time 31 mins -- The patient is admitted for acute critical illness for the treatment of vital organ failure and/or prevention of further life-threatening conditions. Total care includes time spent in review of history, physical exam,
medications, hemodynamic/ventilator parameters, laboratory data, imaging and discussion with house staff, pharmacy, respiratory therapy, tool trouble shooter, and nursing.
Subjective Dataa
Subjective Data
Date of Service:
Date of Service: January 04, 2025
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
Subjective:
Doing well post extubation
Complains of pain, no SOB
Objective Data
Data Reviewed
Vital Signs / I&O / Oxygen:
Vital Signs
Temp Pulse Resp BP Pulse Ox
99.3 F 88 13 101/76 95
01/04/25 06:00 01/04/25 06:00 01/04/25 06:00 01/04/25 06:00 01/04/25 06:00
Intake and Output
01/03/25 01/04/25 01/05/25
06:59 06:59 06:59
Intake Total 929 / 929 1175.0 / 1175.0
Output Total 1375 / 1375 1785 / 1785
Balance -446 / -446 -610.0 / -610.0
SaO2 [CPAP] 99
SaO2 [SIMV] 100
SaO2 95
Nasal Cannula flow liters per 2
minute
Physical Exam
General: Comfortable and Other (NAD)
HEENT: Normocephalic, Anicteric and Moist Mucous Membranes
Cardiovascular: S1-S2 and Regular Rhythm
Respiratory: Clear, Non-Labored Respirations and Chest Tube
GI: Soft, Non Distended and Non Tender
Neurology: Awake, Alert, Oriented and No Motor Deficits
Skin: Warm, Dry and Good Color
Labs/Micro/Reports
Lab Data
01/04/25 04:20
01/04/25 04:20
Laboratory Results
01/03/25
14:19
PT 16.0 H
INR 1.25
APTT 24.8
pH 7.38
pCO2 39
pO2 169 H
HCO3 23.1
O2 Delivery Level vent
[2025-01-04 07:09] LABS: Glucose - Point of Care 124 mg/dl (70-99)
--- NOTE | 2025-01-04 07:23 | PTCARENOTE ---
Assumed care of patient from nightman RN. AAO x 3, forgetful at times but easily reoriented. SR on monitor 80's. Epicardial wire insulated. RT IJ cordis with slick. RT radial A line transducing. Lines leveled, recalibrated and flushed. 2 L
95%. IS to 500. Chest tubes x 4 to - 20 cm suction. No air leak or crepitus noted. Abdomen soft and non tender, denies nausea. Chapin draining clear yellow urine. Surgical sites c ,d,i. Pulses palpable. Plan for day discussed. Drips infusing
on handoff : dobutamine and insulin.
[2025-01-04] MEDS: NORVASC 2.5 MG PO (07:50)
[2025-01-04] MEDS: CRESTOR 40 MG PO (07:50)
[2025-01-04] MEDS: BACTROBAN 2% OINTMENT 1 APPLIC NASAL ×2 (07:50→20:38)
[2025-01-04] MEDS: LOW STRENGTH ASPIRIN 81 MG PO (07:50)
[2025-01-04] MEDS: PROTONIX 40 MG PO (07:50)
[2025-01-04] MEDS: ZETIA 10 MG PO (07:50)
[2025-01-04] MEDS: PLAVIX 75 MG PO (07:50)
[2025-01-04] MEDS: NEURONTIN 100 MG PO (07:50)
[2025-01-04] MEDS: NOVOLOG FLEXPEN SC ×3 (07:50→17:39)
[2025-01-04] MEDS: SENOKOT-S 1 TABLET PO ×2 (07:50→20:09)
--- NOTE | 2025-01-04 09:00 | PTCARENOTE ---
RN spoke with pts , who states that she believes that gabapentin in the past caused confusion or extreme drowsiness. Information relayed to CT team. Med dc'd. RT IJ slick removed, RT radial A line removed, manual pressure applied and
hemostasis achieved. Chapin cath removed at this time also, pt instructed on importance of measuring. Will monitor.
[2025-01-04 09:05] LABS: Glucose - Point of Care 128 mg/dl (70-99)
--- NOTE | 2025-01-04 09:58 | PTCARENOTE ---
Assist x 2 oob to chair. Dizzy initially but subsided w/o treatment. No dumping noted from chest tubes. Resting in chair after.
--- NOTE | 2025-01-04 10:59 | W.PN.ANS.POP ---
Anesthesia Post Operative
- Anesthesia Post Op Note
Vital Signs Stable-See Nursing Note: Yes
Airway Patent: Yes
Adequate Pain Control: Yes
Change in Mental Status: No
Current Postoperative Nausea & Vomiting: No
Anesthesia Complications: No
General Anesthetic Recall: No
Unplanned Admission: No
Post Op Hydration Adequate: Yes
[2025-01-04] MEDS: NOVOLIN R INSULIN INFUSION 100 IV (11:04)
[2025-01-04 11:08] LABS: Glucose - Point of Care 127 mg/dl (70-99)
--- NOTE | 2025-01-04 11:56 | PTCARENOTE ---
Agitated when family visiting. Pt asked them to leave. upset. RN offered emotional support. Family left. medicated for pain and Assist x 2 back to bed.
[2025-01-04] MEDS: NSS IV (12:06)
[2025-01-04 12:58] LABS: Glucose - Point of Care 123 mg/dl (70-99)
[2025-01-04 14:56] LABS: Glucose - Point of Care 105 mg/dl (70-99)
--- NOTE | 2025-01-04 15:58 | PTCARENOTE ---
Pt unable to void 6 hours after pérez removed. Bladder scan preformed for 231 ml. Denies urge , no tenderness noted. Will encourage po intake and follow. Pt assisted oob to chair x 1 assist at this time. Shortly after pt rang and able to void
150 ml dark martín urine in his drinking cup......
--- NOTE | 2025-01-04 16:20 | PTCARENOTE ---
Pt continues to be very impulsive. After assisted back to bed, bed alarm placed.
[2025-01-04 17:10] LABS: Glucose - Point of Care 150 mg/dl (70-99)
[2025-01-04 19:08] LABS: Glucose - Point of Care 144 mg/dl (70-99)
[2025-01-04] MEDS: TORADOL 15 MG IV (19:49)
--- NOTE | 2025-01-04 20:00 | PTCARENOTE ---
assumed care of patient at 1900, patient alert and oriented, impulsive at times, does not wait for assistance. bed alarm remains on. Amino bolus given, BP 112/66, heart rate in 80's, V Wire insultated. Resp on Room air, 95%, lungs clear and
diminished at bases, CT X4 draiining Serosangious fuild. Chest and sternal dressings CDI. Void at side of bed, urine consinterated, miniumal output, 50 cc. pain controlled with tordol.
[2025-01-04] MEDS: CORDARONE 103 MG IV (20:09)
[2025-01-04] MEDS: LOPRESSOR 12.5 MG PO (20:09)
[2025-01-04 21:33] LABS: Glucose - Point of Care 126 mg/dl (70-99)
[2025-01-04] MEDS: FLOMAX 0.4 MG PO (22:27)
[2025-01-04 23:17] LABS: Glucose - Point of Care 93 mg/dl (70-99)
[2025-01-05] VITALS (29 sets, daily range): BP systolic 85–117; BP diastolic 47–92; PULSE 92; BMI 31.7
[2025-01-05 01:01] LABS: Glucose - Point of Care 96 mg/dl (70-99)
--- NOTE | 2025-01-05 01:10 | PTCARENOTE ---
Rounded and check on patient. The patient is resting, blood gluce level within normal range remain on Inslin gtt at this time, CT minimual drainage, vitals signs stable, normal sinus rhythm, on 2 L NC while asleep, denies pain at this time. Voiding
with urinal without issue.
[2025-01-05 04:10] LABS: Glucose - Point of Care 105 mg/dl (70-99)
[2025-01-05] MEDS: TORADOL 15 MG IV ×3 (04:14→21:10)
--- NOTE | 2025-01-05 04:23 | PTCARENOTE ---
patient states pain is 7/10, torodal given, Temp 100.6 Labs drawn, patient voiding.
[2025-01-05 04:30] LABS: Hematocrit 25.1 % (39.0-52.0); Hemoglobin 8.7 g/dL (13.0-18.0); Mean Corp Hgb Conc. 34.7 g/dL (33.0-37.0); Mean Corpuscular Volume 87.2 fL (80.0-94.0); Platelet Count 170 10^3/uL (130-400); Red Cell Dist. Width 13.1 % (11.5-14.5)
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
[2025-01-05 04:46] LABS: Blood Urea Nitrogen 20 mg/dl (9-20); Calcium 7.6 mg/dl (8.4-10.2); Carbon Dioxide 26 mmol/L (22-30); Chloride 104 mmol/L (98-107); Estimated Creatinine Clearance > 125 ml/min; Glucose 103 mg/dl (70-99); Magnesium 2.2 mg/dl (1.6-2.3); Potassium 4.4 mmol/L (3.5-5.1); Sodium 134 mmol/L (135-145); eGFR > 60.00
[2025-01-05] MEDS: TYLENOL 1000 MG PO ×3 (05:14→21:10)
[2025-01-05] MEDS: PACERONE 200 MG PO ×4 (05:14→21:10)
[2025-01-05] MEDS: CALCIUM GLUCONATE 130 MG IV ×2 (05:22→20:36)
[2025-01-05 06:47] LABS: Glucose - Point of Care 102 mg/dl (70-99)
--- NOTE | 2025-01-05 07:17 | W.PN.INTV ---
Today's Communication / Plan
Recommendations
Doing well, stable on RA
Chest tubes are discontinued
Transition off insulin IV
Transfer to tele once off insulin, we will sign off upon transfer
Assessment
-
Patient is a 69-year-old male with prior history of nonobstructive CAD, hypertension, hyperlipidemia, diabetes presenting to ER on 01/01/2025 with intermittent chest pain and shortness of breath for several weeks. Was noted to have ST depressions
on EKG with troponin of 0.124, ruled in for NSTEMI. Underwent cardiac catheterization demonstrating 70% LAD lesion, 90% ostial, 90% RCA with recommendation for CT surgery evaluation. Underwent CABG x 3 on 01/03/2025 and admitted to CVICU for
postoperative management.
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
Perioperative mechanical ventilation
Postop anemia
Ruled in for NSTEMI status post cardiac cath 01/01/2025
Chest pain, elevated troponins, EKG changes
Hyperglycemia
Conditions present prior to admission
Coronary Artery Disease
Diabetes Mellitus, Type II
Essential Hypertension
Hyperlipidemia
BPH
GERD
Obesity, BMI 31
Back surgery
Bilateral shoulder surgery
Plan
S/p CABG x 3 POD #2
Titrated off pressors per protocol
ECHO reviewed with normal function
Chest tubes discontinued
Extubated and doing well
Pain control
RASS goal of 0 to -1
ABG(s) reviewed/adequate
CXR with stable postop changes
Maintain supplement oxygen as needed
No prior history of pulmonary disease
No Prior PFTs for review
Can add nebulizers if needed
Aspiration precautions
Encouraged incentive spirometry, OOB/ambulation/early mobility
Advance diet as tolerated following extubation
GI prophylaxis if indicated for mechanical ventilation >48 hours
Monitor critical I/O's
Chapin/chest tube output
Hb/platelets postoperatively stable
Trend CBC for now
Can transfuse if indicated for Hb <7, plt <50 in surgical patients
DVT prophylaxis including SCDs
Insulin protocol initiated
Transition to SQ/off as indicated per team
Diagnostic Data
Chest X-Ray: 01/03/25- Endotracheal tube in place distal tip approximately 3.5 cm above the priti. Right and left chest tubes are present. No definite pneumothorax identified on this supine examination. There is a right internal jugular central
venous catheter placed with distal tip in the proximal third of the superior vena cava. Median sternotomy wires are present. Evidence of left atrial appendage closure device. Mild cardiac enlargement. Slight widening of the mediastinum, though
likely accentuated by recent surgery, as well has supine AP portable technique.
01/02/25- No acute disease of the chest
CT Scan: CHEST 01/02/25- No acute disease of the chest. Gallstones. Moderate atherosclerotic vascular disease.
Echo: 01/02/25- 1. Left ventricular ejection fraction is normal with an ejection fraction of 59 % by Hickman's biplane method of discs.
2. It appears the basal inferior wall is akinetic and the basal inferolateral wall is hypokinetic.
3. Mild aortic valve stenosis.
4. No prior study available for comparison.
PFT's:
Reports and relevant images were personally reviewed.
Critical Care time 31 mins -- The patient is admitted for acute critical illness for the treatment of vital organ failure and/or prevention of further life-threatening conditions. Total care includes time spent in review of history, physical exam,
medications, hemodynamic/ventilator parameters, laboratory data, imaging and discussion with house staff, pharmacy, respiratory therapy, junior mechanical engineer, and nursing.
Subjective Dataa
Subjective Data
Date of Service:
Date of Service: January 05, 2025
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
Subjective:
chest tubes discontinued, stable on RA
no new complaints
Objective Data
Data Reviewed
Vital Signs / I&O / Oxygen:
Vital Signs
Temp Pulse Resp BP Pulse Ox
100.6 F H 88 22 108/77 94
01/05/25 04:09 01/05/25 06:45 01/05/25 04:09 01/05/25 06:34 01/05/25 04:30
Intake and Output
01/04/25 01/05/25 01/06/25
06:59 06:59 06:59
Intake Total 1175.0 / 1208.6 1199.4 / 1199.4
Output Total 1785 / 1895 1230 / 1230
Balance -610.0 / -686.4 -30.6 / -30.6
SaO2 [CPAP] 99
SaO2 [SIMV] 100
SaO2 94
Nasal Cannula flow liters per 2
minute
Physical Exam
General: Comfortable and Other (NAD)
HEENT: Normocephalic, Anicteric and Moist Mucous Membranes
Cardiovascular: S1-S2 and Regular Rhythm
Respiratory: Clear and Non-Labored Respirations
GI: Soft, Non Distended and Non Tender
Neurology: Awake, Alert, Oriented and No Motor Deficits
Skin: Warm, Dry and Good Color
Labs/Micro/Reports
Lab Data
01/05/25 03:51
01/05/25 03:51
--- NOTE | 2025-01-05 08:00 | PTCARENOTE ---
Patient received from night stocker RN; AAOx1 - disoriented to time and place but easily reoriented; Patient responds to RN and follows commands; Forgetful and impulsive - bed and chair alarm in place; VSS; SR with PVC's on monitor; Epicardial V-wire
in place and insulated; Trace B/L LE and +1 left hand edema; Shallow respirations; Lungs diminished at bases; SpO2 92-94% on RA; IS 750 ml; CTx4 connected to -20 wall suction draining serosanguineous drainage - no tidaling, air leak, or crepitus
noted; Round, obese abdomen; Hypoactive BS; Difficulty urinating; Surgical sites intact; PIVx2 - #20 RAC and #18 right wrist; Insulin infusing - see nursing flowsheets for further information; See nursing documentation for further details
[2025-01-05 08:32] LABS: Glucose - Point of Care 117 mg/dl (70-99)
[2025-01-05] MEDS: SENOKOT-S 1 TABLET PO ×2 (08:45→19:38)
[2025-01-05] MEDS: ZETIA 10 MG PO (08:45)
[2025-01-05] MEDS: PROTONIX 40 MG PO (08:45)
[2025-01-05] MEDS: MILK OF MAGNESIA 30 ML PO (08:45)
[2025-01-05] MEDS: LOPRESSOR 12.5 MG PO (08:45)
[2025-01-05] MEDS: BACTROBAN 2% OINTMENT 1 APPLIC NASAL ×2 (08:46→19:38)
[2025-01-05] MEDS: NOVOLOG FLEXPEN 4 UNITS SC (08:46)
[2025-01-05] MEDS: LOW STRENGTH ASPIRIN 81 MG PO (08:46)
[2025-01-05] MEDS: PLAVIX 75 MG PO (08:46)
[2025-01-05] MEDS: MAGNESIUM OXIDE 400 MG PO ×2 (08:46→19:38)
[2025-01-05] MEDS: CRESTOR 40 MG PO (08:46)
[2025-01-05] MEDS: NORVASC 2.5 MG PO (08:47)
[2025-01-05 10:49] LABS: Glucose - Point of Care 135 mg/dl (70-99)
[2025-01-05] MEDS: NOVOLOG FLEXPEN SC (12:29)
[2025-01-05] MEDS: LASIX 20 MG IV (12:29)
[2025-01-05 12:45] LABS: Glucose - Point of Care 105 mg/dl (70-99)
--- NOTE | 2025-01-05 12:54 | PTCARENOTE ---
Chest tubes removed by RN at bedside - no complications noted and VSS; IV Lasix 20 mg ordered and given; Patient urinating small amounts of clear, martín urine; RN attempted to ambulate patient but patient dizzy/lightheaded with standing up and had
to sit back down twice on bed when attempting to ambulate - transferred to chair with assist x1 and resting comfortably in chair at this time
[2025-01-05] MEDS: NSS IV (13:43)
[2025-01-05 14:10] LABS: Glucose - Point of Care 85 mg/dl (70-99)
[2025-01-05] MEDS: FARXIGA 10 MG PO (14:42)
[2025-01-05 15:22] LABS: Hematocrit 28.8 % (39.0-52.0); Hemoglobin 9.9 g/dL (13.0-18.0)
[2025-01-05] MEDS: GLUCOPHAGE 500 MG PO (16:17)
[2025-01-05] MEDS: FLEXBUMIN 50 IV (16:40)
--- NOTE | 2025-01-05 17:01 | PTCARENOTE ---
Patient orthostatic this afternoon - still dizzy and lightheaded with positional changes; Able to ambulate in room and hallways using a RW; CVNP Sandra Tan notified regarding orthostasis and IV Albumin ordered and PO Flomax placed on hold; CVNP
Sandra Tan also notified regarding low grade temperature - patient encouraged to use incentive spirometer and acapella; Patient sitting in chair
[2025-01-05 17:18] LABS: Glucose - Point of Care 130 mg/dl (70-99)
[2025-01-05] MEDS: NOVOLOG FLEXPEN-MODERATE RESISTANCE SC ×2 (17:18→21:19)
--- NOTE | 2025-01-05 19:00 | PTCARENOTE ---
Patient received from RN @ 1900. Patient lying in bed w/ call johns in reach. AOx1 to person. Reorients quickly to place and time. Does not use call johns properly. Bed alarm activated. SR on monitor. BP 117/78 HR 91. Heart sounds audible.
V-wires insulated. trace lower edema noted. +1 hand edema noted. Right radial and left ulnar pulse present. Pedal pulses present. IS 1000. POX 92% RA. Lungs diminished in bases bilaterally. Occasional non productive cough noted. Hypoactive
bowel sounds present. Voiding clear yellow urine. Sternal incision dressing dry and intact. Right groin and right knee incision well approximated MAGDY. Left radial punctures well approximated MAGDY. 2 PIV patent and intact. See worklist for more
details.
[2025-01-05] MEDS: LOPRESSOR PO ×2 (19:39→19:42)
[2025-01-05] MEDS: TOPROL XL 12.5 MG PO (19:51)
[2025-01-05] MEDS: KCL 20 MEQ PO (19:52)
[2025-01-05] MEDS: CORDARONE 103 MG IV (20:10)
[2025-01-05] MEDS: MELATONIN 5 MG PO (21:09)
[2025-01-05 21:19] LABS: Glucose - Point of Care 120 mg/dl (70-99)
--- NOTE | 2025-01-05 23:39 | PTCARENOTE ---
Patient reassessed. Patient sleeping. SR on monitor BP 111/66 HR 72 POX 99% 2L NC
[2025-01-06] VITALS (7 sets, daily range): BP systolic 106–133; BP diastolic 68–83; BMI 31.3
--- NOTE | 2025-01-06 04:30 | PTCARENOTE ---
AM labs sent. VSS, NSR per tele monitor
[2025-01-06 04:43] LABS: Hematocrit 26.3 % (39.0-52.0); Hemoglobin 9.0 g/dL (13.0-18.0); Mean Corp Hgb Conc. 34.2 g/dL (33.0-37.0); Mean Corpuscular Volume 88.0 fL (80.0-94.0); Platelet Count 186 10^3/uL (130-400); Red Cell Dist. Width 12.9 % (11.5-14.5)
[2025-01-06 04:58] LABS: Blood Urea Nitrogen 25 mg/dl (9-20); Calcium 8.8 mg/dl (8.4-10.2); Carbon Dioxide 26 mmol/L (22-30); Chloride 104 mmol/L (98-107); Estimated Creatinine Clearance 108 ml/min; Glucose 110 mg/dl (70-99); Magnesium 2.1 mg/dl (1.6-2.3); Potassium 4.5 mmol/L (3.5-5.1); Sodium 136 mmol/L (135-145); eGFR > 60.00
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
[2025-01-06] MEDS: TYLENOL 1000 MG PO ×3 (05:24→22:08)
[2025-01-06] MEDS: CALCIUM GLUCONATE 100 IV (05:27)
[2025-01-06] MEDS: PACERONE 200 MG PO ×2 (08:05→16:08)
[2025-01-06] MEDS: LOW STRENGTH ASPIRIN 81 MG PO (08:05)
[2025-01-06] MEDS: ZETIA 10 MG PO (08:05)
[2025-01-06] MEDS: FARXIGA 10 MG PO (08:05)
[2025-01-06] MEDS: CRESTOR 40 MG PO (08:05)
[2025-01-06] MEDS: NORVASC 2.5 MG PO (08:05)
[2025-01-06] MEDS: SENOKOT-S 1 TABLET PO ×2 (08:05→20:16)
[2025-01-06] MEDS: PROTONIX 40 MG PO (08:05)
[2025-01-06] MEDS: GLUCOPHAGE 500 MG PO (08:05)
[2025-01-06] MEDS: PLAVIX 75 MG PO (08:06)
[2025-01-06] MEDS: BACTROBAN 2% OINTMENT 1 APPLIC NASAL ×2 (08:06→20:17)
[2025-01-06] MEDS: NSS IV (08:06)
[2025-01-06] MEDS: MAGNESIUM OXIDE 400 MG PO ×2 (08:06→20:17)
[2025-01-06] MEDS: TOPROL XL 25 MG PO (08:06)
--- NOTE | 2025-01-06 08:10 | W.PN.CD ---
Today's Communication / Plan
-
Remains in sinus. Continue post op care as directed by Ct surgery
Impression / Plan
-
Impression/Plan: 69 y/o male with HTN, HLD, NIDDM and strong family history admitted with NSTEMI. Seen to have 2V CAD and now s/p CABG.
NSTEMI/CAD:
-Cardiac catheterization revealed 2V CAD (culprit ostial RCA, iFR+ mLAD and 90% ostial large D2).
-now s/p CABG x 3 (DUSTY to LAD, L RA to D2, GSV to distal RCA past crux) and ELAA w/ 40mm AtriClip, Dr. Cohen 01/03/25
-TTE: Left ventricular ejection fraction is normal with an ejection fraction of 59 % by Hickman's biplane method of discs. It appears the basal inferior wall is akinetic and the basal inferolateral wall is hypokinetic. Mild aortic valve stenosis.
-intra-op LEIDA: LVEF is approximately 55% with basal inferior/posterior akinesis. The basal inferior wall is also thinned (0.8cm).
-Remains in sinus rhythm. Stable. Continue postop care as directed by CT surgery
HTN:
-monitor post-op
HLD:
-Total cholesterol = 154, LDL = 75, HDL = 49, Triglycerides = 153.
-Continue rosuvastatin 40 mg daily.
-ezetimibe 10 mg daily.
-Goal LDL < 55, triglycerides < 150.
DM2: Treatment directed by CT surgery
DATA:
Cardiac Catheterization, 01/01/2025:
CONCLUSIONS
1. Right dominant circulation with a 90% true ostial RCA lesion followed by several 40% lesions in the distal RCA as it becomes the RPDA, hazy, 40-50% lesion in the mid LAD spanning the origin of D2, a 90% lesion in the ostium of the large second
diagonal and an occlusive 70% lesion in the mid/distal LAD (IFR = 0.87).
2. Normal filling pressures (LVEDP = 12 mmHg at 101.2 kg).
3. Probably mild aortic valve stenosis (mean aortic valve gradient 10.57 mmHg).
Physical Exam
Vital Signs/Labs
Vital Signs
Temp Pulse Resp BP Pulse Ox
98.7 F 76 16 113/73 92
01/06/25 04:00 01/06/25 06:00 01/06/25 04:00 01/06/25 04:16 01/06/25 06:00
01/05/25 01/06/25 01/07/25
06:59 06:59 06:59
Actual Weight 103.1 kg 101.8 kg
01/06/25 04:26
01/06/25 04:26
PT 16.0 Sec (11.4-14.6) H 01/03/25 14:19
INR 1.25 01/03/25 14:19
APTT 24.8 Sec (23.4-35.0) 01/03/25 14:19
Magnesium 2.1 mg/dl (1.6-2.3) 01/06/25 04:26
Triglycerides 153 mg/dl (10-149) H 01/02/25 03:52
LDL Cholesterol, Calc 75 mg/dl 01/02/25 03:52
VLDL Cholesterol, Calc 30 mg/dl (0-30) 01/02/25 03:52
HDL Cholesterol 49 mg/dl 01/02/25 03:52
Physical Exam
Constitutional: No acute distress
Cardiovascular: Rhythm & rate is regular
Respiratory: Wheeze Absent and Rhonchi Absent
GI: Soft
Neuro/Psych: Alert
Data Reviewed
-
Date of Service: January 06, 2025
Medical Decision Making: Reviewed Test Results
X-Ray/CT/US/MRI/NUC/PET: Report Reviewed by me
Medical Tests (PFT, Pathology etc): Report Reviewed by me
Labs: Labs Reviewed by me
[2025-01-06] MEDS: NOVOLOG FLEXPEN-MODERATE RESISTANCE SC ×3 (08:33→23:11)
--- NOTE | 2025-01-06 09:38 | PTCARENOTE ---
assumed care of pt from previous shift RN, sinus rhythm on tele, VSS, + peripheral pulses, +1 edema to bilateral lower extremities. Lungs diminished, pox 94-96% on RA. Coughing and deep breathing encouraged. +bs, tolerating PO intake, educated pt on
the importance of measured voids as he was supposed to be voiding in urinal but went in toilet. Surgical sites stable, PIV x2 flush easily. Pt denies pain. safety precautions and plan of care reviewed w the pt and questions encouraged.
--- NOTE | 2025-01-06 16:25 | PTCARENOTE ---
VSS, sinus rhythm maintained on tele, pt tolerated walk in hallway using rolling walker.
[2025-01-06] MEDS: NOVOLOG FLEXPEN-MODERATE RESISTANCE 7 UNITS SC (17:13)
[2025-01-06] MEDS: FLOMAX 0.4 MG PO (22:08)
[2025-01-06] MEDS: MELATONIN 5 MG PO (22:08)
[2025-01-06] MEDS: PACERONE 400 MG PO (22:09)
[2025-01-06 22:59] LABS: Glucose - Point of Care 275 mg/dl (70-99)
[2025-01-07] VITALS (7 sets, daily range): BP systolic 103–118; BP diastolic 73–88; PULSE 91; BMI 30.6
--- NOTE | 2025-01-07 01:54 | PTCARENOTE ---
Received pt @ change of shift. AAOx3, VSS-- NSR with PVCs on monitor. V-wire in place, wrapped in ABD. Left wrist site clean, dry, intact, open to air, surgical glue present. Right saphenous and groin sites clean, dry, intact, open to air, surgical
glue present. Aquacel dressing on sternum. 4 chest tube sites MEDICAL TECHNOLOGIST with stitches present. Discussed plan of care. Pt verbalizes understanding. Call johns within reach.
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
[2025-01-07 04:38] LABS: Hematocrit 24.3 % (39.0-52.0); Hemoglobin 8.1 g/dL (13.0-18.0); Mean Corp Hgb Conc. 33.3 g/dL (33.0-37.0); Mean Corpuscular Volume 88.4 fL (80.0-94.0); Platelet Count 220 10^3/uL (130-400); Red Cell Dist. Width 12.7 % (11.5-14.5)
[2025-01-07 05:00] LABS: Blood Urea Nitrogen 21 mg/dl (9-20); Calcium 8.1 mg/dl (8.4-10.2); Carbon Dioxide 25 mmol/L (22-30); Chloride 106 mmol/L (98-107); Estimated Creatinine Clearance 121 ml/min; Glucose 107 mg/dl (70-99); Magnesium 1.8 mg/dl (1.6-2.3); Potassium 4.1 mmol/L (3.5-5.1); Sodium 136 mmol/L (135-145); eGFR > 60.00
[2025-01-07] MEDS: TYLENOL 1000 MG PO (06:36)
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
--- NOTE | 2025-01-07 07:56 | W.PN.CD ---
Today's Communication / Plan
-
Monitor for any signs of blood loss.
Maintain current medical regimen.
Encourage incentive spirometry.
Ambulate.
Discharge planning.
CBC in one week.
Impression / Plan
-
Impression/Plan: 69 y/o male with HTN, HLD, NIDDM and strong family history admitted with NSTEMI with 2V CAD, now s/p CABG.
#NSTEMI/CAD:
-Acute, threat to life.
-Cardiac catheterization revealed 2V CAD (culprit ostial RCA, iFR+ mLAD and 90% ostial large D2).
-s/p CABG x 3 (DUSTY to LAD, LRA to D2, GSV to distal RCA past crux) and ELAA w/ 40mm AtriClip with Dr. Cohen, 01/03/25.
-Continue routine post operative care.
-Encourage incentive spirometry.
-Ambulate.
-Continue amiodarone, amlodipine (for LRA spasm prevention), aspirin, clopidogrel, metoprolol succinate 25 mg daily and rosuvastatin.
#Anemia
-Acute, post operative.
-No current indication for transfusion.
-Monitor for any further significant blood loss. No outward signs at this time.
#Ischemic cardiomyopathy
-Acute (on chronic?).
-Preserved LV function with basal inferior and inferolateral wall is hypokinetic.
-No evidence of HF.
-GDMT as hemodynamics will tolerate:
-Diuretics: One dose of furosemide yesterday.
-Beta mony: Metoprolol succinate 25 mg daily.
-ACEI/ARB/ARNi: None due to relative hypotension, LVEF > 40%.
-MRA: None due to relative hypotension.
-SGLT2i: Dapagliflozin 10 mg daily while inpatient (in place of outpatient empagliflozin).
-ICD: Not currently indicated.
#HTN:
-Chronic, stable. Some modest post operative hypotension.
-Tolerating metoprolol, low dose amlodipine.
-Hold home losartan/isosorbide.
#HLD:
-Chronic, stable.
-Total cholesterol = 154, LDL = 75, HDL = 49, Triglycerides = 153.
-Continue rosuvastatin 40 mg daily and ezetimibe 10 mg daily.
-Goal LDL < 55, triglycerides < 150.
#DM2:
-Chronic, stable.
-HbA1c = 6.8%.
-Off of post operative insulin.
-Continue home metformin, dapagliflozin in place of empagliflozin.
Subjective/Interval History:
Weight down to 99.4 (from 101.8).
Hbg has fallen from 9.0 to 8.1.
WBC has fallen from 14.7 to 11.2.
Platelets stable.
DATA:
Cardiac Catheterization, 01/01/2025:
CONCLUSIONS
1. Right dominant circulation with a 90% true ostial RCA lesion followed by several 40% lesions in the distal RCA as it becomes the RPDA, hazy, 40-50% lesion in the mid LAD spanning the origin of D2, a 90% lesion in the ostium of the large second
diagonal and an occlusive 70% lesion in the mid/distal LAD (IFR = 0.87).
2. Normal filling pressures (LVEDP = 12 mmHg at 101.2 kg).
3. Probably mild aortic valve stenosis (mean aortic valve gradient 10.57 mmHg).
TTE, 01/02/2025:
SUMMARY
1. Left ventricular ejection fraction is normal with an ejection fraction of 59 % by Hickman's biplane method of discs.
2. It appears the basal inferior wall is akinetic and the basal inferolateral wall is hypokinetic.
3. Mild aortic valve stenosis.
4. No prior study available for comparison.
Physical Exam
Vital Signs/Labs
Vital Signs
Temp Pulse Resp BP Pulse Ox
36.6 C 76 16 115/79 96
01/07/25 07:48 01/07/25 04:13 01/07/25 07:48 01/06/25 22:11 01/07/25 07:48
01/05/25 01/06/25 01/07/25
11:59 11:59 11:59
Actual Weight 103.1 kg 101.8 kg 99.4 kg
01/07/25 04:20
01/07/25 04:20
PT 16.0 Sec (11.4-14.6) H 01/03/25 14:19
INR 1.25 01/03/25 14:19
APTT 24.8 Sec (23.4-35.0) 01/03/25 14:19
Magnesium 1.8 mg/dl (1.6-2.3) 01/07/25 04:20
Triglycerides 153 mg/dl (10-149) H 01/02/25 03:52
LDL Cholesterol, Calc 75 mg/dl 01/02/25 03:52
VLDL Cholesterol, Calc 30 mg/dl (0-30) 01/02/25 03:52
HDL Cholesterol 49 mg/dl 01/02/25 03:52
Physical Exam
Constitutional: No acute distress and Comfortable
EENT: Anicteric and Moist mucous membranes
Cardiovascular: Rhythm & rate is regular, Pedal edema is absent, JVD pressure is normal, S1S2 is normal and Murmur/rub/gallop absent
Respiratory: Respiratory effort normal, Lungs clear to auscul., Wheeze Absent, Crackles Absent and Rhonchi Absent
GI: Soft, Distention absent, Flat, Non tender and Normal bowel sounds
Neuro/Psych: AO x 3
Data Reviewed
-
Date of Service: January 07, 2025
Medical Decision Making: Reviewed Test Results, Independent Historian Assessment and Test Interpretation
EKG: Tracing Personally Visualized and interpreted and Report Reviewed by me
Echo: Report Reviewed by me
X-Ray/CT/US/MRI/NUC/PET: Image Personally Visualized and interpreted and Report Reviewed by me
Medical Tests (PFT, Pathology etc): Image Personally Visualized and interpreted and Report Reviewed by me
Labs: Labs Reviewed by me
Old Records: Reviewed
[2025-01-07 08:10] LABS: Glucose - Point of Care 178 mg/dl (70-99)
[2025-01-07] MEDS: PLAVIX 75 MG PO (09:06)
[2025-01-07] MEDS: TOPROL XL 25 MG PO (09:06)
[2025-01-07] MEDS: LOW STRENGTH ASPIRIN 81 MG PO (09:06)
[2025-01-07] MEDS: PACERONE 200 MG PO (09:07)
[2025-01-07] MEDS: FARXIGA 10 MG PO (09:07)
[2025-01-07] MEDS: ZETIA 10 MG PO (09:07)
[2025-01-07] MEDS: CRESTOR 40 MG PO (09:07)
[2025-01-07] MEDS: SENOKOT-S 1 TABLET PO (09:07)
[2025-01-07] MEDS: GLUCOPHAGE 500 MG PO (09:07)
[2025-01-07] MEDS: PROTONIX 40 MG PO (09:08)
[2025-01-07] MEDS: NORVASC 2.5 MG PO (09:08)
[2025-01-07] MEDS: MAGNESIUM OXIDE 400 MG PO (09:08)
[2025-01-07] MEDS: NOVOLOG FLEXPEN-MODERATE RESISTANCE 1 UNITS SC (09:09)
[2025-01-07] MEDS: BACTROBAN 2% OINTMENT 1 APPLIC NASAL (09:09)
--- NOTE | 2025-01-07 10:40 | PTCARENOTE ---
2 view chest xray completed.
--- NOTE | 2025-01-07 10:53 | PTCARENOTE ---
received patient this am in bed , monitor shows NSR, VSS. sternum Acuseal removed, incision well approximated, no oozing, ecchymotic. CT sites D/I, sutures remain in. right knee incision MAGDY, right groin MAGDY. patient wants to go home today.
[2025-01-07] MEDS: NSS IV (12:23)
[2025-01-07] MEDS: NOVOLOG FLEXPEN-MODERATE RESISTANCE SC (12:23)
--- NOTE | 2025-01-07 13:00 | PTCARENOTE ---
D/C instructions given to patient and family, both verbalizes understanding. INT x 2 D/C'd, telemetry D/C'd, personal belongings packed and sent home with patient. D/C to home via wc accompanied by staff.
[2025-01-07 14:31] LABS: Glucose - Point of Care 325 mg/dl (70-99)
== END 2025-01-07 13:00 | disposition home or self-care (01) | DRG 233 ==
LOC: IVU 14:48
PROVIDERS: Hospitalist; Internal Medicine Cardiovascular Disease; Nurse Practitioner; Physician Assistant Medical; ADMITTING PHYSICIAN Hospitalist; ATTENDING PHYSICIAN Thoracic Surgery (Cardiothoracic Vascular Surgery); CONSULT PHYSICIAN Internal Medicine; CONSULT PHYSICIAN Internal Medicine Cardiovascular Disease; EMERGENCY PHYSICIAN Emergency Medicine; FAMILY PHYSICIAN Family Medicine
PROC: B2111ZZ Fluoroscopy of Multiple Coronary Arteries using Low Osmolar Contrast (ICD-10-PCS; 2025-01-01)
PROC: 4A033BC Measurement of Arterial Pressure, Coronary, Percutaneous Approach (ICD-10-PCS; 2025-01-01)
PROC: 4A023N7 Measurement of Cardiac Sampling and Pressure, Left Heart, Percutaneous Approach (ICD-10-PCS; 2025-01-01)
PROC: B24BZZ4 Ultrasonography of Heart with Aorta, Transesophageal (ICD-10-PCS; 2025-01-03)
PROC: 02100AC Bypass Coronary Artery, One Artery from Thoracic Artery with Autologous Arterial Tissue, Open Approach (ICD-10-PCS; 2025-01-03)
PROC: 06BP4ZZ Excision of Right Saphenous Vein, Percutaneous Endoscopic Approach (ICD-10-PCS; 2025-01-03)
PROC: 5A1221Z Performance of Cardiac Output, Continuous (ICD-10-PCS; 2025-01-03)
PROC: 02L70CK Occlusion of Left Atrial Appendage with Extraluminal Device, Open Approach (ICD-10-PCS; 2025-01-03)
PROC: 02100A3 Bypass Coronary Artery, One Artery from Coronary Artery with Autologous Arterial Tissue, Open Approach (ICD-10-PCS; 2025-01-03)
PROC: 03BC4ZZ Excision of Left Radial Artery, Percutaneous Endoscopic Approach (ICD-10-PCS; 2025-01-03)
PROC: 0210093 Bypass Coronary Artery, One Artery from Coronary Artery with Autologous Venous Tissue, Open Approach (ICD-10-PCS; 2025-01-03)
DX: I21.4 Non-ST elevation (NSTEMI) myocardial infarction (principal); J95.1 Acute pulmonary insufficiency following thoracic surgery; D62 Acute posthemorrhagic anemia; J98.11 Atelectasis; E87.1 Hypo-osmolality and hyponatremia; F05 Delirium due to known physiological condition; J90 Pleural effusion, not elsewhere classified; I25.10 Atherosclerotic heart disease of native coronary artery without angina pectoris; E78.2 Mixed hyperlipidemia; I10 Essential (primary) hypertension; E11.65 Type 2 diabetes mellitus with hyperglycemia; E86.1 Hypovolemia; E87.70 Fluid overload, unspecified; I25.5 Ischemic cardiomyopathy; N40.0 Benign prostatic hyperplasia without lower urinary tract symptoms; E66.811 Obesity, class 1; K21.9 Gastro-esophageal reflux disease without esophagitis; E83.42 Hypomagnesemia; I48.0 Paroxysmal atrial fibrillation; R00.1 Bradycardia, unspecified; Z82.49 Family history of ischemic heart disease and other diseases of the circulatory system; Z79.82 Long term (current) use of aspirin; Z79.84 Long term (current) use of oral hypoglycemic drugs; Z68.32 Body mass index [BMI] 32.0-32.9, adult
CPT/HCPCS: 71045; 71046; 71250; 80048; 80053; 80061; 81003; 81015; 82330; 82565; 82805; 82810; 82947; 82962; 83036; 83735; 84132; 84302; 84484; 84520; 85014; 85018; 85025; 85027; 85049; 85347; 85610; 85730; 86850; 86900; 86901; 86920; 93005; 93306; 93312; 93320; 93325; 93458; 93799; 93880; 93923; 93930; 94002; 96360; 99152; 99153; 99285; C1725; C1769; C1894; P9045; P9047; Q9950; Q9967

== ENCOUNTER 2025-02-03 18:21 | Inpatient (IN) | payer BC, SELFPAY ==
[2025-02-03 12:46] VITALS: BP 124/84
[2025-02-03 13:13] LABS: Urine Character Clear (Clear)
[2025-02-03 13:34] LABS: Urine Red Blood Cell 0-2 /HPF (0-2); Urine Squamous Cell 0-2 /LPF (Few); Urine White Cell 50-60 /HPF (0-5)
--- NOTE | 2025-02-03 14:26 | ED.GENMED ---
History of Present Illness
General
Chief Complaint: Urinary Symptoms
Source: patient
Exam Limitations: none
Time Seen by Provider: 02/03/25 14:14
History of Present Illness
History of Present Illness:
69-year-old male presents complaining of fatigue urinary symptoms increased frequency and burning getting worse over the past 2 days. He had bypass surgery about a month ago. He been doing well. The symptoms started 2 days ago. His states
that he is not himself he is acting confused at times. He denies any blood in the urine or flank pain. No fever or vomiting. States he is not sleeping well because of the urinary symptoms
Phy Exam
Physical Exam
Physical Exam:
General: Well-appearing male no acute respiratory distress
HEENT: Normal cephalic atraumatic
Heart: Regular rate and rhythm
Lungs: Clear no wheeze
Abdomen is soft nontender nondistended no guarding or rebound
Extremities: No cyanosis
Course
Orders/Labs/Results
Orders:
Orders
02/03/25 12:54
Electrocardiogram (*1) Urgent
Reason for Study: Tachycardia
EKG- Treatment ONCE
02/03/25 12:57
Urinalysis Reflex To Culture Urgent
Date Specimen was Collected: 02/03/25
Time Specimen was Collected: 12:55
Urine Microscopic Reflex Cult Urgent
Urine Culture Urgent
LOVELY Source: U
Specimen Description:
Date Specimen was Collected: 02/03/25
Time Specimen was Collected: 12:55
02/03/25 14:25
0.9% Sodium Chloride 1000 ml [Nss] 1,000 ml IV BOLUS
CefTRIAXone [Rocephin] 1,000 mg IV NOW STA
02/03/25 14:27
Complete Blood Count/With Diff Urgent
Comprehensive Metabolic Panel Urgent
02/03/25 14:59
Acetaminophen [Tylenol] 650 mg PO NOW STA
02/03/25 15:15
Blood Culture Q30M
LOVELY Source: Blood/Venous
Specimen Description:
02/03/25 15:45
Blood Culture Q30M
LOVELY Source: Blood/Venous
Specimen Description:
Abnormal Lab Results
02/03/25 02/03/25
12:57 14:27
WBC 16.0 H 10^3/uL
(4.8-10.8)
RBC 4.38 L 10^6/uL
(4.70-6.10)
Hgb 12.5 L g/dL
(13.0-18.0)
Hct 38.1 L %
(39.0-52.0)
MCHC 32.8 L g/dL
(33.0-37.0)
Abs Immat Gran (auto) 0.1 H 10^3/uL
(0-0.05)
Absolute Neuts (auto) 13.4 H 10^3/uL
(1.4-6.5)
Absolute Monos (auto) 1.3 H 10^3/uL
(0.1-0.6)
Immature Gran % 0.6 H %
(0-0.5)
Neutrophils % 83.8 H %
(42.2-75.2)
Lymphocytes % 7.4 L %
(20.5-51.1)
Sodium 132 L mmol/L
(135-145)
Glucose 145 H mg/dl
(70-99)
Alkaline Phosphatase 139 H U/L
(38-126)
Urine Ketones 1+ A
(Negative)
Ur Occult Blood Reflex 4+ A
(Negative)
Urine Nitrite (Reflex) Positive A
(Negative)
Leukocyte Esterase Rfl 3+ A
(Negative)
Urine WBC (Reflex) 50-60 A /HPF
(0-5)
Urine Bacteria (Reflex) Many A
(Negative)
Urine Glucose 2+ A
(Negative)
Urine Albumin (Reflex) 3+ A
(Neg - Trace)
02/03/25 14:27
02/03/25 14:27
Vital Signs
Initial and Last Documented VS:
Initial Vital Signs
Temp Pulse Resp BP Pulse Ox
99.9 F 102 18 124/84 97
02/03/25 12:46 02/03/25 12:46 02/03/25 12:46 02/03/25 12:46 02/03/25 12:46
Last Documented Vital Signs
Temp Pulse Resp BP Pulse Ox
101.5 F H 71 18 137/86 95
02/03/25 14:49 02/03/25 14:49 02/03/25 14:49 02/03/25 14:49 02/03/25 14:49
MDM/Problems Addressed
Differential Diagnosis Includes:
Patient with urinary symptoms and fatigue. Consider UTI versus pyelonephritis versus sepsis versus electrolyte abnormality
Urinalysis concerning for UTI. Given patient's systemic symptoms will check labs hydrate and give Rocephin.
*Pulse Oximetry
SaO2: 97
Oxygen Mode of Delivery: Room air
Patient hypoxic: no
*Critical Care Note
Total Time (30-74mins, 75-104mins- exclusive of procedures): Not Applicable
Update Note
Update Note:
Temperature is 101.5 white blood cell count is 16,000. Patient slightly tachycardic on presentation. Concern for possible sepsis likely secondary to UTI. Fluids ordered Rocephin ordered discussed with emergency room attending admitting team as
well as CT surgery
ED Attending Note
-
Portions of this chart may have been created with voice recognition software.� Occasional wrong word or��sound alike� substitutions may have occurred due to the inherent limitations of voice recognition software.
Discharge Plan
Departure
Patient Disposition: Admit
Date of Disposition: 02/03/25
Time of Disposition: 15:13
Presentation/result/management discussed w/ accepting MD/DO: Hospitalist
Discharge Problem:
Sepsis, Acute UTI
Prescriptions:
No Action
metformin 500 mg tablet
500 mg PO DAILY
acetaminophen [Tylenol Extra Strength] 500 mg Tablet
1,000 mg PO Q6H PRN (Reason: mild pain)
tamsulosin 0.4 mg capsule
0.4 mg PO DAILY
aspirin 81 mg Tablet
81 mg PO DAILY
rosuvastatin 40 mg tablet
40 mg PO DAILY
Jardiance 10 mg tablet
10 mg PO DAILY
amlodipine 2.5 mg Tablet
2.5 mg PO DAILY Qty: 30 2RF
clopidogrel 75 mg Tablet
75 mg PO DAILY Qty: 30 2RF
pantoprazole 40 mg Tablet,Delayed Release (Dr/Ec)
40 mg PO DAILY Qty: 30 2RF
metoprolol succinate 25 mg Tablet Extended Release 24 Hr
25 mg PO DAILY Qty: 30 2RF
ezetimibe 10 mg Tablet
10 mg PO DAILY Qty: 30 2RF
amiodarone 200 mg tablet
200 mg PO BID Qty: 60 1RF
Rx Instructions:
200mg BID x 14 days, then decrease to 200mg daily
Referrals:
Jian Mantilla MD [Family Provider, Family Practice]
Interventions
Interventions:
*Risk Screen - Suicide Last Done: 02/03/25 12:46
*General Assessment Last Done: 02/03/25 14:42
*Neglect/Abuse Screening Last Done: 02/03/25 12:46
*ED- Fall Risk Assessment Last Done: 02/03/25 14:42
*ED COVID-19 Vaccine History Last Done: 02/03/25 14:42
*ED Influenza Vaccine History Last Done: 02/03/25 14:42
ED-Male Genitourinary Assessment Last Done: 02/03/25 14:31
Discharge Date and Time
Print Language: NICARAGUAN
[2025-02-03 14:31] VITALS: BMI 29.8
[2025-02-03] MEDS: NSS 1000 IV (14:31)
[2025-02-03 14:44] LABS: Hematocrit 38.1 % (39.0-52.0); Hemoglobin 12.5 g/dL (13.0-18.0); Mean Corp Hgb Conc. 32.8 g/dL (33.0-37.0); Mean Corpuscular Volume 87.0 fL (80.0-94.0); Nucleated Red Blood Cells % 0 % (-); Platelet Count 260 10^3/uL (130-400); Red Cell Dist. Width 13.2 % (11.5-14.5)
[2025-02-03] MEDS: ROCEPHIN 1000 MG IV (14:45)
[2025-02-03 14:49] VITALS: BP 137/86
[2025-02-03 14:57] LABS: ALT (SGPT) 24 U/L (0-50); AST (SGOT) 29 U/L (17-59); Albumin 4.1 g/dl (3.5-5.0); Alkaline Phosphatase 139 U/L (38-126); Blood Urea Nitrogen 15 mg/dl (9-20); Calcium 8.8 mg/dl (8.4-10.2); Carbon Dioxide 25 mmol/L (22-30); Chloride 99 mmol/L (98-107); Estimated Creatinine Clearance 108 ml/min; Glucose 145 mg/dl (70-99); Potassium 4.5 mmol/L (3.5-5.1); Sodium 132 mmol/L (135-145); Total Protein 6.7 g/dl (6.3-8.2); eGFR > 60.00
[2025-02-03] MEDS: TYLENOL 650 MG PO (15:06)
--- NOTE | 2025-02-03 15:40 | W.PN.UPDATE ---
Update Note
Progress Note Update
69-year-old male with CAD s/p CABG (12/30), HTN, HLD, BPH, GERD, NIDDM who is presenting to the ED today with the complaint of urinary frequency and dysuria for 2 days. Had coronary artery bypass grafting performed here in December 2024 and states
that following his discharge he was feeling well. Over the last 2 days developed urinary frequency and dysuria, was noted by his to appear confused. Denied any pain, hematuria, fevers or chills at home. Patient's sleep has been poor due to
the frequency of urination. Upon arrival was febrile to 101.5 �F though otherwise hemodynamically stable and on room air. Initial labs with WBC 16 and neutrophilic predominance, sodium 132, glucose 145. Urinalysis with 4+ blood, 1+ ketone, 3+
leukocyte esterase, 50-60 WBC per hpf and many bacteria. ECG without acute ischemic or electrophysiologic changes. Urine culture was obtained and he was started on IV ceftriaxone in the ED
AO x 4, NAD. Benign cardiopulmonary and abdomen exam. No tenderness to suprapubic palpation, no CVA tenderness. No edema, no JVD, palpable pulses. Skin warm and dry, no rashes. No focal neurologic deficits or tremor.
#Sepsis secondary to cystitis. SIRS criteria with fever and leukocytosis, source of infection urine. No MDRO history. Urine culture and blood cultures drawn in the ED, started on IV ceftriaxone empirically. Will continue with IV ceftriaxone and
follow cultures. Trend CBC and temperature curve. Start maintenance IV fluids. Hold SGLT2i for now to avoid glucosuria, should be resumed for long-term benefits in the context obstructive CAD, though if has recurrent UTIs in the future may need
discontinued permanently. PRN tylenol for fever
#Acute metabolic encephalopathy. Likely related to sepsis. states he has been intermittently confused since development of his urinary symptoms. Avoid unnecessary sedatives. Monitor MSE, delirium precautions
#NIDDM with hyperglycemia. Home regimen includes metformin, Jardiance. Will hold metformin and transition to ISS with Accu-Cheks. BG goal 140-180, avoid hypoglycemia
#Hypovolemic hyponatremia. Sodium 132. Start maintenance IV fluids as above, trend BMP. If worsening check urine osmolality and urine sodium levels
Diet -- Diabetic
DVT prophylax -- SQ Lovenox
CODE STATUS -- Full
I have independently evaluated Charlie Rasmussen at the bedside. I will be admitting the patient to [facility] as he is at high risk for worsening morbidity due to urosepsis and will require intensive monitoring of his infectious markers and
readjustment of his antimicrobial regimen. I discussed this case with the ED attending. I reviewed the case with the residents and agree with all documentation unless otherwise specified
Please see resident H&P for more details once available
--- NOTE | 2025-02-03 16:05 | W.PN.UPDATE ---
Update Note
Progress Note Update
Patient is a 66-year-old male who was admitted on 01/01 with complaints of dyspnea and ruled in for an NSTEMI underwent a CABG with Dr. Cohen on 01/03. Postoperative course was relatively uneventful and he was discharged on 01/07/2025. He was
recently seen by Dr. Cohen for his 1 month follow-up. At that time the patient felt normal, however, today he presents to [facility] ER with complaints of dysuria, urinary frequency, and fever/chills. Urinalysis was obtained and culture is pending.
Urinalysis was noted to have elevated nitrates and bacteria therefore patient was started on IV ceftriaxone in the ED. His surgical incisions remain well approximated with no signs of infection.
Namita SUTTON
Cardiac Surgery
[2025-02-03 16:06] VITALS: BP 121/80
--- NOTE | 2025-02-03 17:45 | HPS.HSE ---
Family Physician
-
Family Physician: Jian Mantilla
Chief Complaint
-
Dysuria, urinary frequency, Fatigue, fever
History of Present Illness
69-year-old male presents complaining of fatigue and urinary symptoms increased frequency and burning sensation that worse over the past 2-3 days. He had bypass surgery on 01/03/2025. He has been doing well since the discharge. His states
that he is not himself he is acting confused at times. He denies any blood in the urine or flank pain. No vomiting. Patient states he is not sleeping well the the last couple days because of the urinary symptoms. At ER Temp 101.5 and then 100.9
with WBC 16.
Medical History
Past Medical History
Past Medical History: Reports Other
Additional Past Medical History:
CAD (post CABAG 01/03/2025), GERD, HTN, Hypercholesterolemia, NIDDM and Other (BPH)
Past Surgical History: Reports Other
Additional Past Surgical History:
(CABG 01/03/2025)
Social History
Tobacco: Non-smoker
Alcohol: None
Drug: None
Personal:
Living: With Family
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
Family History
Family History: Not pertinent
Allergies / Home Medications
Allergies reflects when Allergies were last updated in [facility].
Home Medications with original date entered in [facility]
Allergy/Medication List:
Allergies
Allergy/AdvReac Type Severity Reaction Status Date / Time
No Known Allergies Allergy Unverified 01/01/25 11:15
Home Medications
acetaminophen 500 mg tablet (Tylenol Extra Strength) 1,000 mg PO Q6H PRN mild pain 01/01/25
aspirin 81 mg tablet 81 mg PO DAILY Blood Clot Prevention/Tx 01/01/25
empagliflozin 10 mg tablet (Jardiance) 10 mg PO DAILY Diabetes 01/01/25
metformin 500 mg tablet 500 mg PO DAILY Diabetes 01/01/25
rosuvastatin 40 mg tablet 40 mg PO DAILY High Cholesterol 01/01/25
tamsulosin 0.4 mg capsule 0.4 mg PO DAILY Urinary Issue 01/01/25
amiodarone 200 mg tablet 200 mg PO BID post-op atrial fibrillation #60 tabs 01/07/25
amlodipine 2.5 mg tablet 2.5 mg PO DAILY radial patency #30 tabs 01/07/25
clopidogrel 75 mg tablet 75 mg PO DAILY Blood clot prevention/tx #30 tabs 01/07/25
ezetimibe 10 mg tablet 10 mg PO DAILY High cholesterol #30 tabs 01/07/25
metoprolol succinate 25 mg tablet,extended release 24 hr 25 mg PO DAILY Heart disease/condition #30 tabs 01/07/25
pantoprazole 40 mg tablet,delayed release 40 mg PO DAILY GI prophylaxis while on plavix #30 tabs 01/07/25
Review of Systems
-
History Source: Patient
A 12 point ROS was completed and negative except as noted: Yes
Physical Exam
Vital Signs
Vital Signs
Temp Pulse Resp BP Pulse Ox
100.9 F H 76 16 121/80 94
02/03/25 16:06 02/03/25 16:06 02/03/25 16:06 02/03/25 16:06 02/03/25 16:06
Physical Exam
General: Well Developed and Well Nourished
Respiratory: Clear
Cardiac: S1/S2 and Regular Rhythm
GI: Soft and Non Tender
Musculoskeletal: No Clubbing and No Cyanosis
Skin: Warm and Dry
Neuro: Awake, Alert, Oriented and AO x 3
Psych: Calm
Laboratory Results
-
02/03/25 14:27
02/03/25 14:27
Laboratory Results
Total Bilirubin 0.8 mg/dl (0.2-1.3) 02/03/25 14:27
AST 29 U/L (17-59) 02/03/25 14:27
ALT 24 U/L (0-50) 02/03/25 14:27
Alkaline Phosphatase 139 U/L (38-126) H 02/03/25 14:27
Impression/Plan
-
69-year-old male presents complaining of fatigue and urinary symptoms increased frequency and burning sensation that worse over the past 2-3 days. He had bypass surgery on 01/03/2025. He has been doing well since the discharge. His states
that he is not himself he is acting confused at times. He denies any blood in the urine or flank pain. No vomiting. Patient states he is not sleeping well the the last couple days because of the urinary symptoms. Temp 101.5 and then 100.9 with
WBC 16.
PLAN:
#Urosepsis
-Temp 100.9 with WBC 19960
-Urinalysis with bacterial infection
-check blood and urine culture
-IV infusion
-IV Ceftriaxone 1000 mg daily
-Monitor WBC and fever
#Non insulin dependent Diabetes Mellitus
-Insulin slow scale
-Hold of Jardiance due to risk of UTI with glucosuria
-Hold Metformin
-monitor glu level
#Hyponatremia
-Na 132
-likely due to dehydration/ infection
-IV fluid
-monitor Na
#Hypertension
-stable at ER
-continue meds
#CAD s/p CABG
#dyslipidemia
-continue aspirin
-continue rosuvastatin
-continue clopidogrel
-continue ezetimibe
#Benign prostatic hypertrophy
continue Tamsulosin
#GERD
continue pantoprazole
DVT prophylaxis. Heparin sc
COD , full code
[2025-02-03 18:07] VITALS: BP 145/80
--- NOTE | 2025-02-03 18:50 | PTCARENOTE ---
Pt transferred to 4W. Pt able to walk from stretcher to bed. AAOx3. Pt c/o pain only when urinating. Safety measures in place, call johns within reach.
[2025-02-03 19:03] VITALS: BP 133/83; BMI 29.7
[2025-02-03] MEDS: LOVENOX 40 MG SC (20:27)
[2025-02-03 21:39] LABS: Glucose - Point of Care 121 mg/dl (70-99)
[2025-02-03 23:19] VITALS: BP 135/77
[2025-02-04 06:53] LABS: Hematocrit 36.6 % (39.0-52.0); Hemoglobin 11.8 g/dL (13.0-18.0); Mean Corp Hgb Conc. 32.2 g/dL (33.0-37.0); Mean Corpuscular Volume 85.9 fL (80.0-94.0); Nucleated Red Blood Cells % 0 % (-); Platelet Count 247 10^3/uL (130-400); Red Cell Dist. Width 13.2 % (11.5-14.5)
[2025-02-04 07:00] VITALS: BP 128/82
[2025-02-04 07:22] LABS: Glucose - Point of Care 137 mg/dl (70-99)
[2025-02-04 07:33] LABS: Blood Urea Nitrogen 10 mg/dl (9-20); Calcium 8.5 mg/dl (8.4-10.2); Carbon Dioxide 25 mmol/L (22-30); Chloride 99 mmol/L (98-107); Estimated Creatinine Clearance 108 ml/min; Glucose 136 mg/dl (70-99); Magnesium 1.6 mg/dl (1.6-2.3); Potassium 4.0 mmol/L (3.5-5.1); Sodium 131 mmol/L (135-145); eGFR > 60.00
[2025-02-04] MEDS: NOVOLOG FLEXPEN-MODERATE RESISTANCE SC ×2 (07:58→17:48)
[2025-02-04] MEDS: LOW STRENGTH ASPIRIN 81 MG PO (07:59)
[2025-02-04] MEDS: ZETIA 10 MG PO (07:59)
[2025-02-04] MEDS: FLOMAX 0.4 MG PO (07:59)
[2025-02-04] MEDS: NORVASC 2.5 MG PO (08:00)
[2025-02-04] MEDS: PLAVIX 75 MG PO (08:00)
[2025-02-04] MEDS: PACERONE 200 MG PO (08:00)
[2025-02-04] MEDS: PROTONIX 40 MG PO (08:00)
[2025-02-04] MEDS: TOPROL XL 25 MG PO (08:00)
[2025-02-04] MEDS: LR 1000 IV ×2 (09:19→17:49)
--- NOTE | 2025-02-04 09:45 | CM ---
Patient seen bedside, initial assessment completed. Patient is a 69-year-old male with CAD s/p CABG (12/30), HTN, HLD, BPH, GERD, NIDDM who is presenting to the ED today with the complaint of urinary frequency and dysuria.
Patient resides w/ spouse and their children in a single story home, no steps to enter. Patient is independent in all areas, no DME reported. NO SNF/HC hx reported. Patient states he has OP therapy scheduled for the upcoming weeks.
Address, point of contact and insurance verified
PCP: Jian Mantilla
[facility]
Plan: Anticipating home, no needs
[2025-02-04 12:12] LABS: Glucose - Point of Care 162 mg/dl (70-99)
[2025-02-04] MEDS: NOVOLOG FLEXPEN-MODERATE RESISTANCE 1 UNITS SC (12:22)
--- NOTE | 2025-02-04 12:51 | W.PN.UPDATE ---
Update Note
Progress Note Update
I have independently evaluated the patient at the bedside.� I reviewed the case with the documentation unless otherwise specified
AO x 4, NAD. Benign cardiopulmonary and abdomen exam. No tenderness to suprapubic palpation, no CVA tenderness. No edema, no JVD, palpable pulses. Skin warm and dry, no rashes. No focal neurologic deficits or tremor.
#Sepsis secondary to cystitis. SIRS criteria with fever and leukocytosis, source of infection urine. No MDRO history. �Urine culture with E. coli, blood cultures NGTD. Will continue with IV ceftriaxone and follow cultures. Trend CBC and temperature
curve. Start maintenance IV fluids. Hold SGLT2i for now to avoid glucosuria, should be resumed for long-term benefits in the context obstructive CAD, though if has recurrent UTIs in the future may need discontinued permanently. PRN tylenol for fever
#Acute metabolic encephalopathy. Likely related to sepsis. states he has been intermittently confused since development of his urinary symptoms. Avoid unnecessary sedatives. Monitor MSE, delirium precautions
#NIDDM with hyperglycemia. Home regimen includes metformin, Jardiance. Hold home meds and transition to ISS with Accu-Cheks. BG goal 140-180, avoid hypoglycemia
#Hypovolemic hyponatremia. Sodium 131-132. Continue maintenance IV fluids as above, trend BMP.
Diet -- Diabetic
DVT prophylaxis -- SQ Lovenox
CODE STATUS � Full
Disposition � Likely discharge in 24-48 hours
[2025-02-04] MEDS: FLUSH (NSS) 1 FLUSH IV (13:28)
[2025-02-04] MEDS: STERILE WATER FOR INJECTION 10 ML IV (13:33)
[2025-02-04] MEDS: FLUSH (NSS) 10 FLUSH IV ×2 (13:34→13:40)
[2025-02-04] MEDS: ROCEPHIN 1000 MG IV (13:34)
--- NOTE | 2025-02-04 13:35 | W.PN.HOSP.TC ---
Today's Communication/Plan
-
PT/OT evaluation today
Assessment / Plan
Assessment / Plan
69-year-old male presents complaining of fatigue and urinary symptoms increased frequency and burning sensation that worse over the past 2-3 days. He had bypass surgery on 01/03/2025. He has been doing well since the discharge. His states
that he is not himself he is acting confused at times. He denies any blood in the urine or flank pain. No vomiting. Patient states he is not sleeping well the the last couple days because of the urinary symptoms. Temp 101.5 and then 100.9 with
WBC 16.
PLAN:
#Urosepsis
-Temp 100.9 with WBC 54155 at ED , today temp 99.5, WBC normal today
-Urinalysis with bacterial infection
-check blood and urine culture
-IV infusion
-IV Ceftriaxone 1000 mg daily
-Monitor WBC and fever
#Acute metabolic encephalopathy
Likely related to sepsis
stated he has been confused since development of his urinary symptoms
Avoid sedatives
Monitor MSE
delirium precautions
#Non insulin dependent Diabetes Mellitus
-Insulin slow scale
-Hold of Jardiance due to risk of UTI with glucosuria
-Hold Metformin
-monitor glu level
#Hyponatremia
-Na 132 -->131
-likely due to dehydration/ infection
-IV fluid
-monitor Na
#Hypertension
-stable at ER
-continue meds
#CAD s/p CABG
#dyslipidemia
-continue aspirin
-continue rosuvastatin
-continue clopidogrel
-continue ezetimibe
#Benign prostatic hypertrophy
continue Tamsulosin
#GERD
continue pantoprazole
DVT prophylaxis. Heparin sc
COD , full code
Anticipated Discharge: > 48 hours
Subjective/Interval History
-
Date of Service: February 04, 2025
Patient still have dysuria, urinary frequency and lower abd pain.
Objective Data
-
Labs:
Laboratory Results
02/04/25
05:54
WBC 10.2
Hgb 11.8 L
Hct 36.6 L
Plt Count 247
Sodium 131 L
Potassium 4.0
Chloride 99
Carbon Dioxide 25
BUN 10
Creatinine 0.7
Glucose 136 H
Calcium 8.5
Vital Signs:
Vital Signs
Temp Pulse Resp BP Pulse Ox
99.5 F 75 16 128/82 96
02/04/25 07:00 02/04/25 07:00 02/04/25 07:00 02/04/25 07:00 02/04/25 07:00
I&O
02/03/25 02/04/25 02/05/25
06:59 06:59 06:59
Intake Total 720 / 720
Balance 720 / 720
Review of Systems
-
History Source: Patient
Respiratory: Reports No Symptoms
Cardiac: Reports No Symptoms
Abdomen/GI: Reports Abdominal Pain
Genitourinary: Reports Dysuria and Frequency
Musculoskeletal: Reports No Symptoms
Neuro: Reports No Symptoms
Physical Exam
-
General: Well Developed, Well Nourished and No Apparent Distress
HEENT: Normocephalic and Atraumatic
Respiratory: Clear to Auscultation
Cardiac: Regular Rhythm and S1/S2
GI: Soft and Nontender
Musculoskeletal: No Clubbing, No Cyanosis and No Edema
Neuro: Awake, Alert and Oriented
Psych: Calm
[2025-02-04 14:54] VITALS: BP 124/74
[2025-02-04 16:42] LABS: Glucose - Point of Care 112 mg/dl (70-99)
[2025-02-04] MEDS: CRESTOR 40 MG PO (17:50)
[2025-02-04] MEDS: LOVENOX 40 MG SC (17:50)
[2025-02-04 21:24] LABS: Glucose - Point of Care 114 mg/dl (70-99)
[2025-02-04 22:56] VITALS: BP 147/92
[2025-02-05] MEDS: LR 1000 IV ×2 (00:59→09:09)
[2025-02-05 06:31] LABS: Hematocrit 35.8 % (39.0-52.0); Hemoglobin 11.5 g/dL (13.0-18.0); Mean Corp Hgb Conc. 32.1 g/dL (33.0-37.0); Mean Corpuscular Volume 84.6 fL (80.0-94.0); Nucleated Red Blood Cells % 0 % (-); Platelet Count 235 10^3/uL (130-400); Red Cell Dist. Width 13.2 % (11.5-14.5)
[2025-02-05 06:53] LABS: ALT (SGPT) 30 U/L (0-50); AST (SGOT) 27 U/L (17-59); Albumin 3.3 g/dl (3.5-5.0); Alkaline Phosphatase 129 U/L (38-126); Blood Urea Nitrogen 8 mg/dl (9-20); Calcium 8.7 mg/dl (8.4-10.2); Carbon Dioxide 25 mmol/L (22-30); Chloride 101 mmol/L (98-107); Estimated Creatinine Clearance > 125 ml/min; Glucose 128 mg/dl (70-99); Potassium 4.0 mmol/L (3.5-5.1); Sodium 133 mmol/L (135-145); Total Protein 5.9 g/dl (6.3-8.2); eGFR > 60.00
[2025-02-05 07:31] LABS: Glucose - Point of Care 119 mg/dl (70-99)
[2025-02-05 07:41] VITALS: BP 132/87
[2025-02-05] MEDS: NOVOLOG FLEXPEN-MODERATE RESISTANCE SC (09:02)
[2025-02-05] MEDS: ZETIA 10 MG PO (09:02)
[2025-02-05] MEDS: PLAVIX 75 MG PO (09:03)
[2025-02-05] MEDS: TOPROL XL 25 MG PO (09:03)
[2025-02-05] MEDS: PACERONE 200 MG PO (09:04)
[2025-02-05] MEDS: FLOMAX 0.4 MG PO (09:04)
[2025-02-05] MEDS: PROTONIX 40 MG PO (09:04)
[2025-02-05] MEDS: NORVASC 2.5 MG PO (09:04)
[2025-02-05] MEDS: LOW STRENGTH ASPIRIN 81 MG PO (09:05)
--- NOTE | 2025-02-05 09:46 | W.PN.HOSP.TC ---
Today's Communication/Plan
-
Discharge today on Cephalexin 500 Mg BID for 5 days with the total of 7 days including 2days IV Ceftriaxone at the hospital.
Assessment / Plan
Assessment / Plan
69-year-old male presents complaining of fatigue and urinary symptoms increased frequency and burning sensation that worse over the past 2-3 days. He had bypass surgery on 01/03/2025. He has been doing well since the discharge. His states
that he is not himself he is acting confused at times. He denies any blood in the urine or flank pain. No vomiting. Patient states he is not sleeping well the the last couple days because of the urinary symptoms. Temp 101.5 and then 100.9 with
WBC 16.
PLAN:
#Urosepsis
-Temp 100.9 with WBC 15827 at ED, Urinalysis with bacterial infection
-leukocytosis, vital stable
-check blood and urine culture, urine cx prelim. report showed E.coli
-IV infusion
-IV Ceftriaxone 1000 mg daily
-Monitor WBC and fever
#Acute metabolic encephalopathy
Likely related to sepsis
stated he has been confused since development of his urinary symptoms
Avoid sedatives
Monitor MSE
delirium precautions
#Non insulin dependent Diabetes Mellitus
-Insulin slow scale
-Hold of Jardiance due to risk of UTI with glucosuria
-Hold Metformin
-monitor glu level
#Hyponatremia
-Na 132 -->131-->133
-likely due to dehydration/ infection
-IV fluid
-monitor Na
#Hypertension
-stable at ER
-continue meds
#CAD s/p CABG
#dyslipidemia
-continue aspirin
-continue rosuvastatin
-continue clopidogrel
-continue ezetimibe
#Benign prostatic hypertrophy
continue Tamsulosin
#GERD
continue pantoprazole
DVT prophylaxis. Heparin sc
COD , full code
Anticipated Discharge: Today
Subjective/Interval History
-
Date of Service: February 05, 2025
patient dysuria improving , still has urinary frequency. Denied abd pain, nausea, vomiting, fever, chills, hematuria. patient stated that he want to be discharged home today so he can go to work tomorrow.
Objective Data
-
Labs:
Laboratory Results
02/05/25
06:01
WBC 7.5
Hgb 11.5 L
Hct 35.8 L
Plt Count 235
Sodium 133 L
Potassium 4.0
Chloride 101
Carbon Dioxide 25
BUN 8 L
Creatinine 0.6 L
Glucose 128 H
Calcium 8.7
Total Bilirubin 0.4
AST 27
ALT 30
Alkaline Phosphatase 129 H
Vital Signs:
Vital Signs
Temp Pulse Resp BP Pulse Ox
98.4 F 71 16 132/87 96
02/05/25 07:41 02/05/25 09:03 02/05/25 07:41 02/05/25 09:03 02/05/25 07:41
I&O
02/04/25 02/05/25 02/06/25
06:59 06:59 06:59
Intake Total 720 / 720 2160 / 2160
Balance 720 / 720 2160 / 2160
Review of Systems
-
History Source: Patient
Respiratory: Reports No Symptoms
Cardiac: Reports No Symptoms
Abdomen/GI: Reports No Symptoms
Genitourinary: Reports Dysuria and Frequency
Musculoskeletal: Reports No Symptoms
Neuro: Reports No Symptoms
Physical Exam
-
General: Well Developed, Well Nourished and No Apparent Distress
HEENT: Normocephalic and Atraumatic
Respiratory: Clear to Auscultation
Cardiac: Regular Rhythm and S1/S2
GI: Soft and Nontender
Genito-urinary: No Costovertebral Tender
Musculoskeletal: No Clubbing, No Cyanosis and No Edema
Neuro: Awake, Alert and Oriented
Psych: Calm
--- NOTE | 2025-02-05 11:59 | CM ---
Home no needs.
Plan; Home no needs.
[2025-02-05 12:07] LABS: Glucose - Point of Care 167 mg/dl (70-99)
[2025-02-05] MEDS: NOVOLOG FLEXPEN-MODERATE RESISTANCE 1 UNITS SC (13:05)
[2025-02-05] MEDS: STERILE WATER FOR INJECTION 10 ML IV (13:06)
[2025-02-05] MEDS: ROCEPHIN 1000 MG IV (13:07)
[2025-02-05] MEDS: FLUSH (NSS) 1 FLUSH IV (13:08)
[2025-02-05 14:30] VITALS: BP 126/79
--- NOTE | 2025-02-06 17:42 | W.DCSUMMARY ---
Documented by User: Quinton Layton MD, Resident 02/06/25 18:54
Discharge Summary
Discharge Data
Date of Admission: 02/03/25
Date of Discharge: 02/05/25
-
Pending Results: No
Hospital Course
Discharge Physician:
Samir Ahumada , Quinton Layton
Disposition:
Home
Primary Care Physician:
Jian Mantilla
Principal Discharge Diagnosis:
Sepsis secondary to cystitis
Chronic Discharge Diagnosis:
GERD, Hypertension, Hypercholesterolemia, NIDDM, Benign prostatic hypertrophy, CAD (post CABAG 01/03/2025)
Hospital Course:
69-year-old male presents complaining of fatigue urinary symptoms increased frequency and dysuria getting worse over the past 2 days. He had bypass surgery on 01/03/2025. He been doing well since then. The symptoms started 2 days ago with lower
abdominal pain and confusion. He denies any blood in the urine or flank pain. No fever or vomiting with sleeping disturbances as well because of the urinary symptoms.
His Vitals at the ER:Temp at ER 101.5 F , HR 102 RR 18 Bl.Pr.137/86 O2 sat 95%.
At the ED the WBC was 16, Na 132 , Glucose 145 , ALP 139, Hb 12.5, Urinalysis was consistent with bacterial infection. Patient started on IV fluids and Ceftriaxone 1000 mg IV for sepsis secondary to acute UTI and admitted to the hospital to
complete receiving the IV antibiotics. During hospitalization the Urine culture results showed growth with E. coli, blood cultures Negative Growth To Date of the discharge and the patient continue receiving IV Ceftriaxone 1000 mg with maintenance IV
fluids which help with hypovolemic hyponatremia with Sodium levels 131-132. Patient's home meds for hyperglycemia had been held and transition to Insulin Sliding Scale with Accu-Cheks. Patient received PRN Tylenol for fever. Patient has acute
metabolic encephalopathy at arrival. Likely related to sepsis which has been improved during hospitalization. Patient received other home medications at the hospital for his chronic diseases. His symptoms have been improving and the vital signs on
02/05/2925: BP 126/79 , HR 78, Resp 16, Temp 98.1 F, O2 sat 97% with WBC down to normal level 7.5, Hb11.5, Na 133, glucose 128, ALP 129
During hospitalization the Jardiance has been held (SGLT2 inhibitor) to avoid glucosuria, patient informed to resumed for long-term benefits in the context obstructive CAD after completing the oral antibiotics after discharge, though if has
recurrent UTIs in the future may need discontinued permanently.
Patient discharged in stable condition on Cephalexin 500 BID for 5days.
Discharge Plan
-
Patient Disposition: Home (Routine Discharge)
Discharge Diagnosis/Procedures: Acute UTI
Diet: Diabetic, Carb Controlled
Activity: As tolerated
Driving Restrictions: As prior to admission
Bathing Restrictions: OK to Shower
Referrals:
Grant March MD [Active, Urology] - in one week
Referral Note: Please follow up with the urologist after discharge and make an appointment for outpatient visit by calling this # [phone]
Jian Mantilla MD [Family Provider, Family Practice] - in less than 1 week
Prescriptions:
New
cephalexin 500 mg capsule
500 mg PO BID 5 Days Qty: 10 0RF
Continued
metformin 500 mg tablet
500 mg PO DAILY
tamsulosin 0.4 mg capsule
0.4 mg PO DAILY
aspirin 81 mg Tablet
81 mg PO DAILY
rosuvastatin 40 mg tablet
40 mg PO DAILY
amlodipine 2.5 mg Tablet
2.5 mg PO DAILY Qty: 30 2RF
clopidogrel 75 mg Tablet
75 mg PO DAILY Qty: 30 2RF
pantoprazole 40 mg Tablet,Delayed Release (Dr/Ec)
40 mg PO DAILY Qty: 30 2RF
metoprolol succinate 25 mg Tablet Extended Release 24 Hr
25 mg PO DAILY Qty: 30 2RF
ezetimibe 10 mg Tablet
10 mg PO DAILY Qty: 30 2RF
amiodarone 200 mg tablet
200 mg PO BID Qty: 60 1RF
Rx Instructions:
200mg BID x 14 days, then decrease to 200mg daily
Held
Jardiance 10 mg tablet
10 mg PO DAILY
Hold Instructions: Resume on 02/10/25. Jardiance is SGLT2 Inhibitor and cause glucosuria which increase the risk of UTI. Resume after finish the oral antibiotic . If recurrent UTI after this medication needs to be discontinue.
Discontinued
acetaminophen [Tylenol Extra Strength] 500 mg Tablet
1,000 mg PO Q6H PRN (Reason: mild pain)
Discharge Orders:
Discharge Patient (As Directed); Ordered 02/05/25
Ordered By: Quinton Layton
Discharge Date and Time
Discharge Date/Time: 02/05/25 16:23
Print Language: URUGUAYAN

Documented by User: Samir Ahumada DO 02/07/25 08:05
Discharge Summary
Discharge Data
Date of Admission: 02/03/25
Date of Discharge: 02/05/25
Total time spent discharging patient (in min): 32
Discharge Plan
-
Patient Disposition: Home (Routine Discharge)
Discharge Diagnosis/Procedures: Acute UTI
Diet: Diabetic, Carb Controlled
Activity: As tolerated
Driving Restrictions: As prior to admission
Bathing Restrictions: OK to Shower
Referrals:
Grant March MD [Active, Urology] - in one week
Referral Note: Please follow up with the urologist after discharge and make an appointment for outpatient visit by calling this # [phone]
Jian Mantilla MD [Family Provider, Family Practice] - in less than 1 week
Prescriptions:
New
cephalexin 500 mg capsule
500 mg PO BID 5 Days Qty: 10 0RF
Continued
metformin 500 mg tablet
500 mg PO DAILY
tamsulosin 0.4 mg capsule
0.4 mg PO DAILY
aspirin 81 mg Tablet
81 mg PO DAILY
rosuvastatin 40 mg tablet
40 mg PO DAILY
amlodipine 2.5 mg Tablet
2.5 mg PO DAILY Qty: 30 2RF
clopidogrel 75 mg Tablet
75 mg PO DAILY Qty: 30 2RF
pantoprazole 40 mg Tablet,Delayed Release (Dr/Ec)
40 mg PO DAILY Qty: 30 2RF
metoprolol succinate 25 mg Tablet Extended Release 24 Hr
25 mg PO DAILY Qty: 30 2RF
ezetimibe 10 mg Tablet
10 mg PO DAILY Qty: 30 2RF
amiodarone 200 mg tablet
200 mg PO BID Qty: 60 1RF
Rx Instructions:
200mg BID x 14 days, then decrease to 200mg daily
Held
Jardiance 10 mg tablet
10 mg PO DAILY
Hold Instructions: Resume on 02/10/25. Jardiance is SGLT2 Inhibitor and cause glucosuria which increase the risk of UTI. Resume after finish the oral antibiotic . If recurrent UTI after this medication needs to be discontinue.
Discontinued
acetaminophen [Tylenol Extra Strength] 500 mg Tablet
1,000 mg PO Q6H PRN (Reason: mild pain)
Discharge Orders:
Discharge Patient (As Directed); Ordered 02/05/25
Ordered By: Quinton Layton
Discharge Date and Time
Discharge Date/Time: 02/05/25 16:23
Print Language: URUGUAYAN
== END 2025-02-05 16:23 | disposition home or self-care (01) | DRG 871 ==
LOC: 4 WEST ACU 18:21
PROVIDERS: Emergency Medicine; Physician Assistant; Specialist Research Data Abstracter/Coder; ADMITTING PHYSICIAN Internal Medicine; EMERGENCY PHYSICIAN Emergency Medicine; FAMILY PHYSICIAN Family Medicine
DX: A41.9 Sepsis, unspecified organism (principal); G93.41 Metabolic encephalopathy; E87.1 Hypo-osmolality and hyponatremia; N30.90 Cystitis, unspecified without hematuria; I10 Essential (primary) hypertension; E78.00 Pure hypercholesterolemia, unspecified; E11.65 Type 2 diabetes mellitus with hyperglycemia; E86.0 Dehydration; E86.1 Hypovolemia; I25.10 Atherosclerotic heart disease of native coronary artery without angina pectoris; K21.9 Gastro-esophageal reflux disease without esophagitis; N40.0 Benign prostatic hyperplasia without lower urinary tract symptoms; Z79.02 Long term (current) use of antithrombotics/antiplatelets; Z79.84 Long term (current) use of oral hypoglycemic drugs; Z95.1 Presence of aortocoronary bypass graft
CPT/HCPCS: 80048; 80053; 81003; 81015; 82962; 83735; 85025; 87040; 87077; 87086; 87186; 93005; 96374; 97161; 99285